=== PATIENT | male | born 1965 | race Hispanic/Latino ===

== ENCOUNTER 2017-06-22 18:00 | Emergency (ER) | payer MEDICAID, OTHER ==
[2017-06-22 18:00] VITALS: BMI 25.7
[2017-06-22 18:04] VITALS: BP 145/80; PULSE 75; RESP 16; TEMP 98.1; O2SAT 100
== END 2017-06-22 18:45 | disposition left against medical advice (07) ==
LOC: H.ER 18:00
DX: Z02.89 Encounter for other administrative examinations (principal)

== ENCOUNTER 2017-07-07 21:58 | Emergency (ER) | payer MEDICAID, OTHER ==
[2017-07-07 22:01] VITALS: BMI 25.1
[2017-07-07 22:03] VITALS: BP 130/74; PULSE 89; RESP 16; TEMP 97.5; O2SAT 96
--- NOTE | 2017-07-07 22:34 | ED PDOC ---
HPI: Wound Care - HPI Time Seen by Provider: 07/07/17 22:11 Chief Complaint (Nursing): Abnormal Skin Integrity Chief Complaint (Provider): Scalp Wound History Per: Patient Exam Limitations: no limitations Onset/Duration Of Symptoms: Days (x1 week) Current Symptoms Are (Timing): Still Present Quality Of Symptoms: Painful, Itching Severity: Mild Pain Scale Rating Of: 3 Additional Complaint(s): Patient is a 52 year old male who presents to ED for evaluation of scalp wound for the past 6-7 days. Per patient, he has a quarter sized lesion to the posterior scalp where he lost his hair. The area became irritated by his hat and had a small skin break which has been oozing clear fluid x 2 days. Patient seeking wound evaluation at this time. Patient has not taken any medication prior to arrival. Patient does admit to drinking 2 pints of alcohol today. Denies any pus drainage, headache, recent fever, visual changes, nausea, vomiting, chest pain, abdominal pain, or other rash. PMD: None Tetanus: UTD Past Medical History Reviewed: Historical Data, Nursing Documentation, Vital Signs Vital Signs: Last Vital Signs Temp 97.5 F L 07/07/17 22:01 Pulse 89 07/07/17 22:01 Resp 16 07/07/17 22:01 BP 130/74 07/07/17 22:01 Pulse Ox 96 07/07/17 22:01 - Medical History PMH: Back Problems - Surgical History Surgical History: Back Surgery (herniated disc), Hernia Repair - Family History Family History: States: CAD - Social History Current smoker - smoking cessation education provided: Yes (1ppd) Alcohol: > 2 Drinks/Day Drugs: Opiates (heroin) - Immunization History Hx Tetanus Toxoid Vaccination: Yes - Home Medications Home Medications: Ambulatory Orders Medication Instructions Recorded Cephalexin [Keflex] 500 mg PO TID #21 capsule 02/02/17 traMADol [Ultram] 50 mg PO TID PRN #15 tab 02/02/17 Fluticasone Nasal [Flonase] 1 actuation NS BID PRN #1 bottle 04/07/17 Pseudoephedrine HCl [Sudafed 120 mg PO Q12 PRN #10 tablet.er 04/07/17 12-Hour] Clotrimazole 1% Cream [Lotrimin 1%] 1 appl TOP BID #1 tube 07/07/17 - Allergies Allergies/Adverse Reactions: Allergies Allergy/AdvReac Type Severity Reaction Status Date / Time No Known Allergies Allergy Verified 07/07/17 22:01 Review of Systems ROS Statement: Except As Marked, All Systems Reviewed And Found Negative Skin: Positive for: Lesions (to scalp) Physical Exam - Reviewed Nursing Documentation Reviewed: Yes Vital Signs Reviewed: Yes - Physical Exam Appears: Positive for: Non-toxic (disheveled), No Acute Distress Head Exam: Positive for: ATRAUMATIC, NORMOCEPHALIC Skin: Positive for: Warm (quarter sized lesion with absence of hair to posterior scalp with erythematous wound margins (-) active bleeding (+) excoriations (-) pus drainage (-) surrounding erythema (-) evidence of cellulitis (-) warmth), Dry Eye Exam: Positive for: EOMI, PERRL Neck: Positive for: Painless ROM, Supple Cardiovascular/Chest: Positive for: Regular Rate, Rhythm Respiratory: Positive for: Normal Breath Sounds. Negative for: Decreased Breath Sounds, Accessory Muscle Use, Respiratory Distress Neurologic/Psych: Positive for: Alert, Oriented (x3), Gait (steady). Negative for: Aphasia, Facial Droop - ECG O2 Sat by Pulse Oximetry: 96 (RA) Pulse Ox Interpretation: Normal Medical Decision Making Medical Decision Making: Clinial impression: wound check, likely tinea capitis Patient does not have a medical condition that requires further intervention at this time in the ED. Patient is stable for discharge. Based on history, exam and diagnostic results plan will be for discharge. Advised to follow up with primary care physician / clinic in 1-2 days without fail. Advised to take medication as prescribed. Return to the emergency room at any time for any new or worsening symptoms. Patient states he fully agrees with and understands discharge instructions. States that he agrees with the plan and disposition. Verbalized and repeated discharge instructions and plan. I have given the patient opportunity to ask any additional questions. Disposition - Clinical Impression Clinical Impression: Tinea corporis, Scalp wound - Patient ED Disposition Is Patient to be Admitted: No Counseled Patient/Family Regarding: Studies Performed, Diagnosis, Need For Followup, Rx Given - Disposition Referrals: [facility] [place] [Outside] Disposition: Routine/Home Disposition Time: 22:40 Condition: STABLE Prescriptions: Clotrimazole 1% Cream [Lotrimin 1%] 1 appl TOP BID #1 tube Instructions: Tinea Capitis (DC), Ringworm Forms: [facility] (Japanese) Print Language: ARABIC - POA Present On Arrival: None
== END 2017-07-07 23:08 | disposition home or self-care (01) ==
LOC: H.ER 21:58
DX: B35.4 Tinea corporis (principal)

== ENCOUNTER 2017-07-09 15:29 | Emergency (ER) | payer MEDICAID, OTHER ==
[2017-07-09 15:29] VITALS: BMI 25.1
[2017-07-09 15:37] VITALS: BP 144/81; PULSE 108; RESP 16; TEMP 99.3; O2SAT 95
--- NOTE | 2017-07-09 17:22 | ED PDOC ---
HPI: Psych/Substance Abuse Time Seen by Provider: 07/09/17 15:42 Chief Complaint (Nursing): Substance Abuse Chief Complaint (Provider): Substance abuse History Per: Patient History/Exam Limitations: no limitations Additional Complaint(s): Pt brought by EMS for evaluation. Pt alert and cooperative in the ER. Asking for apple juice. Pt denies complaint. Pt admits to heroine use today. Past Medical History Reviewed: Historical Data, Nursing Documentation, Vital Signs Vital Signs: Last Vital Signs Temp 99.3 F 07/09/17 15:33 Pulse 108 H 07/09/17 15:33 Resp 16 07/09/17 15:33 BP 144/81 07/09/17 15:33 Pulse Ox 95 07/09/17 15:33 - Medical History PMH: Back Problems - Surgical History Surgical History: Back Surgery (herniated disc), Hernia Repair - Family History Family History: States: CAD - Living Arrangements Living Arrangements: With Family - Social History Current smoker - smoking cessation education provided: Yes Ex-Smoker (has not smoked in the last 12 months): No Alcohol: None Drugs: Opiates - Immunization History Hx Tetanus Toxoid Vaccination: Yes - Home Medications Home Medications: Ambulatory Orders Medication Instructions Recorded Cephalexin [Keflex] 500 mg PO TID #21 capsule 02/02/17 traMADol [Ultram] 50 mg PO TID PRN #15 tab 02/02/17 Fluticasone Nasal [Flonase] 1 actuation NS BID PRN #1 bottle 04/07/17 Pseudoephedrine HCl [Sudafed 120 mg PO Q12 PRN #10 tablet.er 04/07/17 12-Hour] Clotrimazole 1% Cream [Lotrimin 1%] 1 appl TOP BID #1 tube 07/07/17 - Allergies Allergies/Adverse Reactions: Allergies Allergy/AdvReac Type Severity Reaction Status Date / Time No Known Allergies Allergy Verified 07/07/17 22:01 Review of Systems ROS Statement: Except As Marked, All Systems Reviewed And Found Negative Constitutional: Negative for: Fever, Chills Cardiovascular: Negative for: Chest Pain Respiratory: Negative for: Shortness of Breath Gastrointestinal: Negative for: Vomiting Psych: Negative for: Psychosis, Suicidal ideation Physical Exam - Reviewed Nursing Documentation Reviewed: Yes Vital Signs Reviewed: Yes - Physical Exam Appears: Positive for: Well, Non-toxic, No Acute Distress Head Exam: Positive for: ATRAUMATIC, NORMAL INSPECTION, NORMOCEPHALIC Skin: Positive for: Normal Color, Warm, DRY Eye Exam: Positive for: Normal appearance, EOMI, PERRL ENT: Positive for: Normal ENT Inspection Neck: Positive for: Normal, Painless ROM Cardiovascular/Chest: Positive for: Regular Rate, Rhythm Respiratory: Positive for: Normal Breath Sounds. Negative for: Accessory Muscle Use, Respiratory Distress Gastrointestinal/Abdominal: Positive for: Normal Exam, Soft Back: Positive for: Normal Inspection Extremity: Positive for: Normal ROM Neurologic/Psych: Positive for: Alert, Oriented - ECG O2 Sat by Pulse Oximetry: 95 Medical Decision Making Medical Decision Making: Pt at baseline. Drank juice in ER. Asking to leave. Alert and oriented with steady gait. Disposition - Clinical Impression Clinical Impression: Opiate abuse, continuous - Patient ED Disposition Is Patient to be Admitted: No - Disposition Disposition: Routine/Home Disposition Time: 17:24 Condition: GOOD Instructions: Opioid Use Disorder Forms: [employer] (Icelandic)
== END 2017-07-09 18:35 | disposition home or self-care (01) ==
LOC: H.ER 15:29
DX: F11.10 Opioid abuse, uncomplicated (principal); F17.200 Nicotine dependence, unspecified, uncomplicated

== ENCOUNTER 2017-07-14 23:36 | Emergency (ER) | payer OTHER ==
[2017-07-14 23:36] VITALS: BMI 25.1
[2017-07-14 23:45] VITALS: BP 130/78; PULSE 98; RESP 20; TEMP 97.8; O2SAT 97
--- NOTE | 2017-07-15 00:08 | ED PDOC ---
HPI: Psych/Substance Abuse Time Seen by Provider: 07/14/17 23:49 Chief Complaint (Nursing): Substance Abuse Chief Complaint (Provider): substance abuse History Per: Patient, EMS Additional Complaint(s): 52 y/o male brought in by EMS for evaluation of substance abuse. Patient admits to using heroin tonight. Denies acute medical or psychiatric complaints. Requesting juice. Past Medical History Reviewed: Historical Data, Nursing Documentation, Vital Signs Vital Signs: Last Vital Signs Temp 97.8 F 07/14/17 23:42 Pulse 98 H 07/14/17 23:42 Resp 20 07/14/17 23:42 BP 130/78 07/14/17 23:42 Pulse Ox 97 07/14/17 23:42 - Medical History PMH: Back Problems - Surgical History Surgical History: Back Surgery (herniated disc), Hernia Repair - Family History Family History: States: CAD - Immunization History Hx Tetanus Toxoid Vaccination: Yes - Home Medications Home Medications: Ambulatory Orders Medication Instructions Recorded Cephalexin [Keflex] 500 mg PO TID #21 capsule 02/02/17 traMADol [Ultram] 50 mg PO TID PRN #15 tab 02/02/17 Fluticasone Nasal [Flonase] 1 actuation NS BID PRN #1 bottle 04/07/17 Pseudoephedrine HCl [Sudafed 120 mg PO Q12 PRN #10 tablet.er 04/07/17 12-Hour] Clotrimazole 1% Cream [Lotrimin 1%] 1 appl TOP BID #1 tube 07/07/17 - Allergies Allergies/Adverse Reactions: Allergies Allergy/AdvReac Type Severity Reaction Status Date / Time No Known Allergies Allergy Verified 07/07/17 22:01 Review of Systems ROS Statement: Except As Marked, All Systems Reviewed And Found Negative Physical Exam - Reviewed Nursing Documentation Reviewed: Yes Vital Signs Reviewed: Yes - Physical Exam Appears: Positive for: Well, Non-toxic, Uncomfortable (agitated, dancing) Head Exam: Positive for: ATRAUMATIC, NORMAL INSPECTION, NORMOCEPHALIC Skin: Positive for: Normal Color Eye Exam: Positive for: Normal appearance ENT: Positive for: Normal ENT Inspection Cardiovascular/Chest: Positive for: Regular Rate, Rhythm Respiratory: Positive for: Normal Breath Sounds Gastrointestinal/Abdominal: Positive for: Normal Exam Back: Positive for: Normal Inspection Extremity: Positive for: Normal ROM Neurologic/Psych: Positive for: Alert, Oriented - ECG O2 Sat by Pulse Oximetry: 97 - Progress ED Course And Treament: accucheck juice given Patient AAOx3. Ambulating steady gait. Stable for discharge Disposition - Clinical Impression Clinical Impression: Opiate abuse, continuous - Patient ED Disposition Is Patient to be Admitted: No Counseled Patient/Family Regarding: Studies Performed, Diagnosis, Need For Followup - Disposition Disposition: Routine/Home Disposition Time: 01:02 Condition: STABLE Instructions: Drug Abuse and Drug Addiction (DC)
== END 2017-07-15 00:40 | disposition home or self-care (01) ==
LOC: H.ER 23:36
DX: F11.10 Opioid abuse, uncomplicated (principal)

== ENCOUNTER 2017-07-17 19:25 | Emergency (ER) | payer OTHER ==
[2017-07-17 19:25] VITALS: BMI 25.1
[2017-07-17 19:36] VITALS: BP 121/73; PULSE 88; RESP 20; TEMP 98.1; O2SAT 98
--- NOTE | 2017-07-17 21:45 | ED PDOC ---
HPI: Psych/Substance Abuse Time Seen by Provider: 07/17/17 19:37 Chief Complaint (Nursing): Substance Abuse History Per: Patient, EMS Additional Complaint(s): Pt. brought in by EMS for bizarre behavior. Pt. admits to taking heroin. Offers no complaints. Past Medical History Reviewed: Historical Data, Nursing Documentation, Vital Signs Vital Signs: Last Vital Signs Temp 98.1 F 07/17/17 19:33 Pulse 88 07/17/17 19:33 Resp 20 07/17/17 19:33 BP 121/73 07/17/17 19:33 Pulse Ox 98 07/17/17 19:33 - Medical History PMH: Back Problems - Surgical History Surgical History: Back Surgery (herniated disc), Hernia Repair - Family History Family History: States: CAD - Immunization History Hx Tetanus Toxoid Vaccination: Yes - Home Medications Home Medications: Ambulatory Orders Medication Instructions Recorded Cephalexin [Keflex] 500 mg PO TID #21 capsule 02/02/17 traMADol [Ultram] 50 mg PO TID PRN #15 tab 02/02/17 Fluticasone Nasal [Flonase] 1 actuation NS BID PRN #1 bottle 04/07/17 Pseudoephedrine HCl [Sudafed 120 mg PO Q12 PRN #10 tablet.er 04/07/17 12-Hour] Clotrimazole 1% Cream [Lotrimin 1%] 1 appl TOP BID #1 tube 07/07/17 - Allergies Allergies/Adverse Reactions: Allergies Allergy/AdvReac Type Severity Reaction Status Date / Time No Known Allergies Allergy Verified 07/17/17 19:33 Review of Systems ROS Statement: Except As Marked, All Systems Reviewed And Found Negative Physical Exam - Physical Exam Appears: Positive for: Well, Non-toxic, No Acute Distress Head Exam: Positive for: ATRAUMATIC, NORMAL INSPECTION, NORMOCEPHALIC Skin: Positive for: Normal Color, Warm. Negative for: Rash Eye Exam: Positive for: Normal appearance, EOMI, PERRL ENT: Positive for: Normal ENT Inspection Cardiovascular/Chest: Positive for: Regular Rate, Rhythm Respiratory: Positive for: Normal Breath Sounds. Negative for: Respiratory Distress Gastrointestinal/Abdominal: Positive for: Normal Exam, Soft. Negative for: Tenderness Back: Positive for: Normal Inspection Extremity: Positive for: Normal ROM Neurologic/Psych: Positive for: Alert, Oriented, Mood/Affect (calm, cooperative) , Gait (steady unassisted). Negative for: Aphasia, Facial Droop - ECG O2 Sat by Pulse Oximetry: 98 Disposition - Clinical Impression Clinical Impression: Substance abuse - Patient ED Disposition Is Patient to be Admitted: No - Disposition Disposition: Routine/Home Disposition Time: 21:00 Condition: STABLE
== END 2017-07-17 21:00 | disposition home or self-care (01) ==
LOC: H.ER 19:25
DX: F19.10 Other psychoactive substance abuse, uncomplicated (principal)

== ENCOUNTER 2017-07-19 18:02 | Emergency (ER) | payer OTHER ==
[2017-07-19 18:02] VITALS: BMI 25.1
[2017-07-19 18:10] VITALS: BP 126/70; PULSE 103; RESP 18; TEMP 98.2; O2SAT 95
--- NOTE | 2017-07-19 19:32 | ED PDOC ---
HPI: Psych/Substance Abuse Time Seen by Provider: 07/19/17 18:09 Chief Complaint (Nursing): Substance Abuse Chief Complaint (Provider): Heroin Abuse History Per: Patient History/Exam Limitations: no limitations Onset/Duration Of Symptoms: Mins Current Symptoms Are (Timing): Still Present Additional Complaint(s): 48 yo male with history of heroin abuse presents after doing heroin. Pt alert and oriented. Brought in by police. Past Medical History Reviewed: Historical Data, Nursing Documentation, Vital Signs Vital Signs: Last Vital Signs Temp 98.2 F 07/19/17 18:07 Pulse 103 H 07/19/17 18:07 Resp 18 07/19/17 18:07 BP 126/70 07/19/17 18:07 Pulse Ox 95 07/19/17 18:07 - Medical History PMH: Back Problems - Surgical History Surgical History: Back Surgery (herniated disc), Hernia Repair - Family History Family History: States: CAD - Social History Current smoker - smoking cessation education provided: No Alcohol: None Drugs: Opiates - Immunization History Hx Tetanus Toxoid Vaccination: Yes - Home Medications Home Medications: Ambulatory Orders Medication Instructions Recorded Cephalexin [Keflex] 500 mg PO TID #21 capsule 02/02/17 traMADol [Ultram] 50 mg PO TID PRN #15 tab 02/02/17 Fluticasone Nasal [Flonase] 1 actuation NS BID PRN #1 bottle 04/07/17 Pseudoephedrine HCl [Sudafed 120 mg PO Q12 PRN #10 tablet.er 04/07/17 12-Hour] Clotrimazole 1% Cream [Lotrimin 1%] 1 appl TOP BID #1 tube 07/07/17 - Allergies Allergies/Adverse Reactions: Allergies Allergy/AdvReac Type Severity Reaction Status Date / Time No Known Allergies Allergy Verified 07/19/17 18:07 Review of Systems ROS Statement: Except As Marked, All Systems Reviewed And Found Negative Constitutional: Negative for: Fever, Chills Psych: Negative for: Psychosis, Suicidal ideation, Withdrawal Physical Exam - Reviewed Nursing Documentation Reviewed: Yes Vital Signs Reviewed: Yes - Physical Exam Appears: Positive for: Well, Non-toxic, No Acute Distress Head Exam: Positive for: ATRAUMATIC, NORMAL INSPECTION, NORMOCEPHALIC Skin: Positive for: Normal Color, Warm, DRY Eye Exam: Positive for: Normal appearance ENT: Positive for: Normal ENT Inspection Neck: Positive for: Normal, Painless ROM Cardiovascular/Chest: Positive for: Regular Rate, Rhythm Respiratory: Positive for: CNT, Normal Breath Sounds Back: Positive for: Normal Inspection Extremity: Positive for: Normal ROM Neurologic/Psych: Positive for: Alert, Oriented. Negative for: Mood/Affect ( Manic ) - ECG O2 Sat by Pulse Oximetry: 95 Medical Decision Making Medical Decision Making: Pt observed in ER for 2 hours. PT ate a sandwich and drank juice in ER. Pt with steady gait. Disposition - Clinical Impression Clinical Impression: Heroin abuse - Patient ED Disposition Is Patient to be Admitted: No Counseled Patient/Family Regarding: Diagnosis, Need For Followup - Disposition Disposition: Routine/Home Disposition Time: 19:32 Condition: GOOD Instructions: Drug Abuse and Drug Addiction (DC)
== END 2017-07-19 20:46 | disposition home or self-care (01) ==
LOC: H.ER 18:02
DX: F11.10 Opioid abuse, uncomplicated (principal)

== ENCOUNTER 2017-07-26 13:57 | Emergency (ER) | payer OTHER ==
--- NOTE | 2017-07-26 14:43 | ED PDOC ---
HPI: Psych/Substance Abuse Chief Complaint (Provider): Agitation ED Caveat: Acuity of Condition Additional Complaint(s): Pt BIBA after appearing intoxicated in public. <Neris Byers - Last Filed: 07/26/17 14:41> <Luis Coates - Last Filed: 07/26/17 19:36> Time Seen by Provider: 07/26/17 14:00 Chief Complaint (Nursing): Psychiatric Evaluation Past Medical History Reviewed: Nursing Documentation, Vital Signs - Medical History PMH: Back Problems - Surgical History Surgical History: Back Surgery (herniated disc), Hernia Repair - Family History Family History: States: CAD - Immunization History Hx Tetanus Toxoid Vaccination: Yes <Neris Byers - Last Filed: 07/26/17 14:41> Vital Signs: Last Vital Signs Temp 97.8 F 07/26/17 17:45 Pulse 73 07/26/17 17:45 Resp 20 07/26/17 17:45 BP 138/82 07/26/17 17:45 Pulse Ox 97 07/26/17 17:45 <Luis Coates - Last Filed: 07/26/17 19:36> - Home Medications Home Medications: Ambulatory Orders Medication Instructions Recorded Cephalexin [Keflex] 500 mg PO TID #21 capsule 02/02/17 traMADol [Ultram] 50 mg PO TID PRN #15 tab 02/02/17 Fluticasone Nasal [Flonase] 1 actuation NS BID PRN #1 bottle 04/07/17 Pseudoephedrine HCl [Sudafed 120 mg PO Q12 PRN #10 tablet.er 04/07/17 12-Hour] Clotrimazole 1% Cream [Lotrimin 1%] 1 appl TOP BID #1 tube 07/07/17 - Allergies Allergies/Adverse Reactions: Allergies Allergy/AdvReac Type Severity Reaction Status Date / Time No Known Allergies Allergy Verified 07/19/17 18:07 Review of Systems Review Of Systems: ROS cannot be obtained secondary to pt's inabilty to answer questions. <Neris Byers - Last Filed: 07/26/17 14:41> Physical Exam - Reviewed Nursing Documentation Reviewed: Yes Vital Signs Reviewed: Yes - Physical Exam Appears: Positive for: Non-toxic Head Exam: Positive for: ATRAUMATIC, NORMAL INSPECTION Skin: Positive for: Normal Color, Warm, Dry Eye Exam: Positive for: Normal appearance, EOMI, PERRL Cardiovascular/Chest: Positive for: Regular Rate, Rhythm Respiratory: Positive for: Normal Breath Sounds Neurologic/Psych: Positive for: Alert, pe manager II-XII (Grossly normal), Other ( Agitated, yelling, not following direction, ambulated to ED without assistance) <Neris Byers - Last Filed: 07/26/17 14:41> Disposition <Neris Byers - Last Filed: 07/26/17 14:41> <Luis Coates - Last Filed: 07/26/17 19:36> - Disposition Forms: [employer] (Occitan)
[2017-07-26 17:45] VITALS: O2SAT 97
--- NOTE | 2017-07-26 20:00 | ED PDOC ---
- ECG O2 Sat by Pulse Oximetry: 97 (RA) Pulse Ox Interpretation: Normal Medical Decision Making Medical Decision Making: Time: 19:00 Patient was signed out to me by Dr. Byers Pending Clinical Sobriety, reevaluation, and disposition. Upon reevaluation, patient was alert, oriented x3 and walking with a steady gait. Upon provider assessment, patient's condition has improved and he is stable for discharge. Scribe Attestation: Documented by Andreea Lundy, acting as a scribe for Luis Coates MD. Provider Scribe Attestation: All medical record entries made by the Scribe were at my direction and personally dictated by me. I have reviewed the chart and agree that the record accurately reflects my personal performance of the history, physical exam, medical decision making, and the department course for this patient. I have also personally directed, reviewed, and agree with the discharge instructions and disposition. Disposition - Clinical Impression Clinical Impression: Polysubstance abuse - POA Present On Arrival: None - Disposition Disposition: Routine/Home Disposition Time: 20:45 Condition: IMPROVED Instructions: Polysubstance Abuse Forms: [employer] (Sao Tomean)
[2017-07-26 20:47] VITALS: BP 122/76; PULSE 80; RESP 18; TEMP 98.6
== END 2017-07-26 20:46 | disposition home or self-care (01) ==
LOC: H.ER 13:57
DX: F19.10 Other psychoactive substance abuse, uncomplicated (principal)
CPT/HCPCS: 80320; 96372; 99284; J1630; J2060

== ENCOUNTER 2017-07-26 22:20 | Emergency (ER) | payer OTHER ==
[2017-07-26 22:25] VITALS: PULSE 84; RESP 16; TEMP 99.2; O2SAT 95
--- NOTE | 2017-07-26 22:36 | ED PDOC ---
HPI: Psych/Substance Abuse Time Seen by Provider: 07/26/17 22:32 Chief Complaint (Nursing): Substance Abuse Chief Complaint (Provider): substance abuse History Per: EMS History/Exam Limitations: intoxication Additional Complaint(s): presents to ER for drug intoxication and bizarre behavior. pt with no complaints. admits to drug use. Past Medical History Reviewed: Historical Data, Nursing Documentation, Vital Signs Vital Signs: Last Vital Signs Temp 99.2 F 07/26/17 22:23 Pulse 84 07/26/17 22:23 Resp 16 07/26/17 22:23 BP Pulse Ox 95 07/26/17 22:23 - Medical History PMH: Back Problems - Surgical History Surgical History: Back Surgery (herniated disc), Hernia Repair - Family History Family History: States: CAD - Immunization History Hx Tetanus Toxoid Vaccination: Yes - Home Medications Home Medications: Ambulatory Orders Medication Instructions Recorded Cephalexin [Keflex] 500 mg PO TID #21 capsule 02/02/17 traMADol [Ultram] 50 mg PO TID PRN #15 tab 02/02/17 Fluticasone Nasal [Flonase] 1 actuation NS BID PRN #1 bottle 04/07/17 Pseudoephedrine HCl [Sudafed 120 mg PO Q12 PRN #10 tablet.er 04/07/17 12-Hour] Clotrimazole 1% Cream [Lotrimin 1%] 1 appl TOP BID #1 tube 07/07/17 - Allergies Allergies/Adverse Reactions: Allergies Allergy/AdvReac Type Severity Reaction Status Date / Time No Known Allergies Allergy Verified 07/19/17 18:07 Review of Systems Review Of Systems: ROS cannot be obtained secondary to pt's inabilty to answer questions. Physical Exam - Reviewed Nursing Documentation Reviewed: Yes Vital Signs Reviewed: Yes - Physical Exam Appears: Positive for: In Acute Distress (dissheveled disoriented, intoxicated in state similar to previous visits) Head Exam: Positive for: ATRAUMATIC, NORMOCEPHALIC Skin: Positive for: Warm, Dry Eye Exam: Positive for: EOMI, PERRL Neck: Positive for: Painless ROM, Supple Cardiovascular/Chest: Positive for: Regular Rate, Rhythm. Negative for: Murmur Respiratory: Negative for: Rhonchi, Respiratory Distress Gastrointestinal/Abdominal: Negative for: Distended Back: Positive for: Normal Inspection. Negative for: Decreased ROM Extremity: Positive for: Normal ROM. Negative for: Deformity Neurologic/Psych: Positive for: Alert, Mood/Affect (elated mood and affect) - ECG O2 Sat by Pulse Oximetry: 95 Disposition - Clinical Impression Clinical Impression: Opiate abuse, continuous - Disposition Disposition: Routine/Home Disposition Time: 23:00 Condition: IMPROVED Instructions: Drug Abuse and Drug Addiction (DC), Opioid Use Disorder Forms: [employer] (Luxembourgish)
== END 2017-07-26 23:46 | disposition home or self-care (01) ==
LOC: H.ER 22:20
DX: F11.10 Opioid abuse, uncomplicated (principal)

== ENCOUNTER 2017-07-27 15:14 | Emergency (ER) | payer OTHER ==
[2017-07-27 15:21] VITALS: TEMP 97
--- NOTE | 2017-07-27 17:56 | ED PDOC ---
HPI: Psych/Substance Abuse Time Seen by Provider: 07/27/17 15:21 Chief Complaint (Nursing): Substance Abuse Chief Complaint (Provider): Heroin abuse Past Medical History Reviewed: Historical Data, Nursing Documentation, Vital Signs Vital Signs: Last Vital Signs Temp 97 F L 07/27/17 15:19 Pulse 99 H 07/27/17 15:19 Resp 20 07/27/17 15:19 BP Pulse Ox 98 07/27/17 15:19 - Medical History PMH: Back Problems - Surgical History Surgical History: Back Surgery (herniated disc), Hernia Repair - Family History Family History: States: CAD - Immunization History Hx Tetanus Toxoid Vaccination: Yes - Home Medications Home Medications: Ambulatory Orders Medication Instructions Recorded Cephalexin [Keflex] 500 mg PO TID #21 capsule 02/02/17 traMADol [Ultram] 50 mg PO TID PRN #15 tab 02/02/17 Fluticasone Nasal [Flonase] 1 actuation NS BID PRN #1 bottle 04/07/17 Pseudoephedrine HCl [Sudafed 120 mg PO Q12 PRN #10 tablet.er 04/07/17 12-Hour] Clotrimazole 1% Cream [Lotrimin 1%] 1 appl TOP BID #1 tube 07/07/17 - Allergies Allergies/Adverse Reactions: Allergies Allergy/AdvReac Type Severity Reaction Status Date / Time No Known Allergies Allergy Verified 07/27/17 15:19 - ECG O2 Sat by Pulse Oximetry: 98 Medical Decision Making Medical Decision Makin - Pt alert and oriented with clear speech and steady gait. PT ate a sandwich and slept comfortable in ER. Disposition - Clinical Impression Clinical Impression: Opiate abuse, continuous - Patient ED Disposition Is Patient to be Admitted: No - Disposition Disposition: Routine/Home Disposition Time: 17:42 Condition: STABLE Forms: [employer] (Niuean)
[2017-07-27 18:17] VITALS: BP 132/70; PULSE 85; RESP 21
[2017-07-27 18:36] VITALS: O2SAT 98
== END 2017-07-27 19:14 | disposition home or self-care (01) ==
LOC: H.ER 15:14
DX: F11.10 Opioid abuse, uncomplicated (principal)

== ENCOUNTER 2017-12-30 17:24 | Emergency (ER) | payer SELFPAY ==
[2017-12-30 17:46] VITALS: BP 139/88; PULSE 94; RESP 17; TEMP 98.3; O2SAT 97
--- NOTE | 2017-12-30 17:56 | ED PDOC ---
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 Patient admits to heroin abuse today. Offers no complaints at this time. PMD: none provided Past Medical History Reviewed: Historical Data, Nursing Documentation, Vital Signs Vital Signs: Last Vital Signs Temp 98.3 F 12/30/17 17:43 Pulse 94 H 12/30/17 17:43 Resp 17 12/30/17 17:43 BP 139/88 12/30/17 17:43 Pulse Ox 97 12/30/17 17:43 - Medical History PMH: Back Problems Denies: Chronic Kidney Disease - Surgical History Surgical History: Back Surgery (herniated disc), Hernia Repair - Family History Family History: States: CAD - Living Arrangements Living Arrangements: Other (homeless) - Social History Drugs: Other (heroin) - Home Medications Home Medications: Ambulatory Orders Medication Instructions Recorded Cephalexin [Keflex] 500 mg PO TID #21 capsule 02/02/17 RX: traMADol [Ultram] 50 mg PO TID PRN #15 tab 02/02/17 Fluticasone Nasal [Flonase] 1 actuation NS BID PRN #1 bottle 04/07/17 Pseudoephedrine HCl [Sudafed 120 mg PO Q12 PRN #10 tablet.er 04/07/17 12-Hour] RX: Clotrimazole 1% Cream 1 appl TOP BID #1 tube 07/07/17 [Lotrimin 1%] Ibuprofen [Motrin] 600 mg PO QID PRN #30 tab 09/26/17 Sulfamethoxazole/Trimethoprim 1 tab PO BID #14 tab 09/26/17 [Bactrim DS 800 mg-160 mg] Ibuprofen [Motrin Tab] 800 mg PO TID PRN #12 tab 12/05/17 Sulfamethoxazole/Trimethoprim 1 tab PO BID #14 tab 12/05/17 [Bactrim DS 800 mg-160 mg] - Allergies Allergies/Adverse Reactions: Allergies Allergy/AdvReac Type Severity Reaction Status Date / Time No Known Allergies Allergy Verified 12/15/17 18:43 Review of Systems Review Of Systems: ROS cannot be obtained secondary to pt's inabilty to answer questions. Physical Exam - Reviewed Nursing Documentation Reviewed: Yes Vital Signs Reviewed: Yes - Physical Exam Appears: Positive for: No Acute Distress (erratic behavior, but does cooperate) Head Exam: Positive for: ATRAUMATIC Skin: Positive for: Normal Color, Warm. Negative for: Rash Eye Exam: Positive for: Normal appearance Respiratory: Positive for: Normal Breath Sounds. Negative for: Accessory Muscle Use, Respiratory Distress Gastrointestinal/Abdominal: Positive for: Normal Exam, Soft. Negative for: Tenderness Neurologic/Psych: Positive for: Alert, Oriented, Gait (steady and unassisted). Negative for: Aphasia, Facial Droop - ECG O2 Sat by Pulse Oximetry: 97 (RA) Pulse Ox Interpretation: Normal Medical Decision Making Medical Decision Making: Time: 1757 Initial Impression: substance abuse, erratic behavior Initial Plan: --Patient with erratic behavior, but cooperative at this time. Will monitor and reassess patient. 1819 Patient is in no acute distress, gait steady and unassisted, calm and cooperative. Stable for d/c. -- Scribe Attestation: Documented by Alice Clements, acting as a scribe for Kirk Olmedo PA-C. Provider Scribe Attestation: All medical record entries made by the Scribe were at my direction and personally dictated by me. I have reviewed the chart and agree that the record accurately reflects my personal performance of the history, physical exam, medical decision making, and the department course for this patient. I have also personally directed, reviewed, and agree with the discharge instructions and disposition. Disposition - Clinical Impression Clinical Impression: Opiate abuse, continuous - Patient ED Disposition Is Patient to be Admitted: No - Disposition Disposition: Routine/Home Disposition Time: 18:20 Condition: STABLE Forms: [employer] (Divehi)
== END 2017-12-30 18:32 | disposition home or self-care (01) ==
LOC: H.ER 17:24
DX: F11.20 Opioid dependence, uncomplicated (principal)

== ENCOUNTER 2017-12-31 16:46 | Emergency (ER) | payer SELFPAY ==
--- NOTE | 2017-12-31 17:18 | ED PDOC ---
HPI: Psych/Substance Abuse Time Seen by Provider: 12/31/17 16:55 Chief Complaint (Provider): psychiatric evaluation ED Caveat: Uncooperative History Per: Patient Modifying Factor(s): Other (heroin) Severity: Moderate Associated Symptoms: Agitation Involuntary Hold By: Local Law Enforcement Additional History Per: Law Enforcement Additional Complaint(s): 52 year old male, well know to the ED, is brought into the ED by police for noise. Police state that they were called by concerned onlookers when the patient appeared to be agitated and incoherent in public. Patient admits to heroin use. Patient denies having any complaints. Patient is agitated in the ED. PMD: unable to obtain Past Medical History Reviewed: Unable To Obtain - Medical History PMH: Back Problems Denies: Chronic Kidney Disease - Surgical History Surgical History: Back Surgery (herniated disc), Hernia Repair - Family History Family History: States: CAD - Home Medications Home Medications: Ambulatory Orders Medication Instructions Recorded Cephalexin [Keflex] 500 mg PO TID #21 capsule 02/02/17 traMADol [Ultram] 50 mg PO TID PRN #15 tab 02/02/17 Fluticasone Nasal [Flonase] 1 actuation NS BID PRN #1 bottle 04/07/17 Pseudoephedrine HCl [Sudafed 120 mg PO Q12 PRN #10 tablet.er 04/07/17 12-Hour] Clotrimazole 1% Cream [Lotrimin 1%] 1 appl TOP BID #1 tube 07/07/17 Ibuprofen [Motrin] 600 mg PO QID PRN #30 tab 09/26/17 Sulfamethoxazole/Trimethoprim 1 tab PO BID #14 tab 09/26/17 [Bactrim DS 800 mg-160 mg] Ibuprofen [Motrin Tab] 800 mg PO TID PRN #12 tab 12/05/17 Sulfamethoxazole/Trimethoprim 1 tab PO BID #14 tab 12/05/17 [Bactrim DS 800 mg-160 mg] - Allergies Allergies/Adverse Reactions: Allergies Allergy/AdvReac Type Severity Reaction Status Date / Time No Known Allergies Allergy Verified 12/15/17 18:43 Medical Decision Making Medical Decision Makin:55 Initial impression: 52 year old male in the ED for a psychiatric evaluation Initial plan: * ativan 2 mg IM once * reevaluation Scribe Attestation: Documented by Heaven Urias, acting as a scribe for Mariam Gonzalez PA-C. Provider Scribe Attestation: All medical record entries made by the Scribe were at my direction and personally dictated by me. I have reviewed the chart and agree that the record accurately reflects my personal performance of the history, physical exam, medical decision making, and the department course for this patient. I have also personally directed, reviewed, and agree with the discharge instructions and disposition. Disposition - Clinical Impression Clinical Impression: Substance abuse - Patient ED Disposition Is Patient to be Admitted: No - Disposition Disposition: Routine/Home Disposition Time: 22:40 Condition: FAIR Instructions: Drug Abuse and Drug Addiction (DC)
[2017-12-31 17:21] VITALS: BP 141/83; PULSE 93; RESP 18; TEMP 98.5; O2SAT 97
== END 2017-12-31 23:10 | disposition home or self-care (01) ==
LOC: H.ER 16:46
DX: F11.10 Opioid abuse, uncomplicated (principal)
CPT/HCPCS: 96372; 99283; J2060

== ENCOUNTER 2018-01-06 16:40 | Emergency (ER) | payer SELFPAY ==
[2018-01-06 16:52] VITALS: TEMP 98.7
--- NOTE | 2018-01-06 16:59 | ED PDOC ---
HPI: Psych/Substance Abuse Time Seen by Provider: 01/06/18 16:55 Chief Complaint (Nursing): Substance Abuse Chief Complaint (Provider): clearance History Per: Patient Additional Complaint(s): 52 y/o male presents in police custody for medical and psychiatric clearance. Patient is currently under arrest. He offers no acute complaints. Past Medical History Reviewed: Historical Data, Nursing Documentation, Vital Signs Vital Signs: Last Vital Signs Temp 98.7 F 01/06/18 16:50 Pulse 118 H 01/06/18 16:50 Resp 16 01/06/18 16:50 BP 135/67 01/06/18 16:50 Pulse Ox 95 01/06/18 16:50 - Medical History PMH: Back Problems - Surgical History Surgical History: Back Surgery (herniated disc), Hernia Repair - Family History Family History: States: CAD - Living Arrangements Living Arrangements: With Family - Social History Current smoker - smoking cessation education provided: Yes Alcohol: None - Home Medications Home Medications: Ambulatory Orders Medication Instructions Recorded Cephalexin [Keflex] 500 mg PO TID #21 capsule 02/02/17 traMADol [Ultram] 50 mg PO TID PRN #15 tab 02/02/17 Fluticasone Nasal [Flonase] 1 actuation NS BID PRN #1 bottle 04/07/17 Pseudoephedrine HCl [Sudafed 120 mg PO Q12 PRN #10 tablet.er 04/07/17 12-Hour] Clotrimazole 1% Cream [Lotrimin 1%] 1 appl TOP BID #1 tube 07/07/17 Ibuprofen [Motrin] 600 mg PO QID PRN #30 tab 09/26/17 Sulfamethoxazole/Trimethoprim 1 tab PO BID #14 tab 09/26/17 [Bactrim DS 800 mg-160 mg] Ibuprofen [Motrin Tab] 800 mg PO TID PRN #12 tab 12/05/17 Sulfamethoxazole/Trimethoprim 1 tab PO BID #14 tab 12/05/17 [Bactrim DS 800 mg-160 mg] - Allergies Allergies/Adverse Reactions: Allergies Allergy/AdvReac Type Severity Reaction Status Date / Time No Known Allergies Allergy Verified 01/06/18 16:48 Review of Systems ROS Statement: Except As Marked, All Systems Reviewed And Found Negative Constitutional: Negative for: Fever Cardiovascular: Negative for: Chest Pain Respiratory: Negative for: Cough Gastrointestinal: Negative for: Nausea, Vomiting Genitourinary Male: Negative for: Dysuria Psych: Negative for: Suicidal ideation Physical Exam - Reviewed Nursing Documentation Reviewed: Yes Vital Signs Reviewed: Yes - Physical Exam Appears: Positive for: Well, Non-toxic, No Acute Distress Skin: Positive for: Normal Color. Negative for: Rash Eye Exam: Positive for: Normal appearance Cardiovascular/Chest: Positive for: Regular Rate, Rhythm Respiratory: Positive for: Normal Breath Sounds. Negative for: Respiratory Distress Extremity: Positive for: Normal ROM Neurologic/Psych: Positive for: Alert, Oriented, Gait (steady) - ECG O2 Sat by Pulse Oximetry: 95 Pulse Ox Interpretation: Normal Medical Decision Making Medical Decision Makin52 year old here for medical and psychiatric clearance. Plan: Crisis eval As per crisis counselor and psychiatrist control clerk food and beverage, Dr. Carrillo, patient does not meet criteria for admission and is stable for discharge. Patient is medically and psychiatrically stable for incarceration. Disposition - Clinical Impression Clinical Impression: Adjustment disorder - Patient ED Disposition Is Patient to be Admitted: No - Disposition Referrals: [facility] [Outside] Disposition: Routine/Home Disposition Time: 18:26 Condition: STABLE Additional Instructions: Patient is medically and psychiatrically cleared for incarceration. Instructions: Adjustment Disorder Forms: [employer] (Bulgarian)
[2018-01-06 18:33] VITALS: BP 130/70; PULSE 92; RESP 20
[2018-01-06 18:36] VITALS: O2SAT 95
== END 2018-01-06 18:30 | disposition home or self-care (01) ==
LOC: H.ER 16:40
DX: F43.20 Adjustment disorder, unspecified (principal); F17.200 Nicotine dependence, unspecified, uncomplicated

== ENCOUNTER 2018-01-09 14:49 | Emergency (ER) | payer SELFPAY ==
[2018-01-09 15:01] VITALS: O2SAT 99
--- NOTE | 2018-01-09 15:57 | ED PDOC ---
HPI: General Adult Time Seen by Provider: 01/09/18 15:07 Chief Complaint (Nursing): Alcohol Ingestion Chief Complaint (Provider): sustance abuse History Per: Patient Additional Complaint(s): 52-year-old male arrives via ambulance for evaluation of possible alcohol intoxication. Patient admits to drinking today. He is noted to have fever of 102 and states he has had a cough past week. PMD: none Past Medical History Reviewed: Historical Data, Nursing Documentation, Vital Signs Vital Signs: Last Vital Signs Temp 101 F H 01/09/18 15:09 Pulse 102 H 01/09/18 14:56 Resp 18 01/09/18 14:56 BP Pulse Ox 99 01/09/18 14:56 - Medical History PMH: Back Problems - Surgical History Surgical History: Back Surgery (herniated disc), Hernia Repair - Family History Family History: States: CAD - Living Arrangements Living Arrangements: With Family - Social History Current smoker - smoking cessation education provided: Yes Alcohol: Social Drugs: Opiates - Home Medications Home Medications: Ambulatory Orders Medication Instructions Recorded Cephalexin [Keflex] 500 mg PO TID #21 capsule 02/02/17 traMADol [Ultram] 50 mg PO TID PRN #15 tab 02/02/17 Fluticasone Nasal [Flonase] 1 actuation NS BID PRN #1 bottle 04/07/17 Pseudoephedrine HCl [Sudafed 120 mg PO Q12 PRN #10 tablet.er 04/07/17 12-Hour] Clotrimazole 1% Cream [Lotrimin 1%] 1 appl TOP BID #1 tube 07/07/17 Ibuprofen [Motrin] 600 mg PO QID PRN #30 tab 09/26/17 Sulfamethoxazole/Trimethoprim 1 tab PO BID #14 tab 09/26/17 [Bactrim DS 800 mg-160 mg] Ibuprofen [Motrin Tab] 800 mg PO TID PRN #12 tab 12/05/17 Sulfamethoxazole/Trimethoprim 1 tab PO BID #14 tab 12/05/17 [Bactrim DS 800 mg-160 mg] Azithromycin [Zithromax] 250 mg PO DAILY #6 tab 01/09/18 Benzonatate 200 mg PO TID PRN #20 capsule 01/09/18 - Allergies Allergies/Adverse Reactions: Allergies Allergy/AdvReac Type Severity Reaction Status Date / Time No Known Allergies Allergy Verified 01/06/18 16:48 Review of Systems ROS Statement: Except As Marked, All Systems Reviewed And Found Negative Constitutional: Positive for: Fever Cardiovascular: Negative for: Chest Pain Respiratory: Positive for: Cough. Negative for: Shortness of Breath Physical Exam - Reviewed Nursing Documentation Reviewed: Yes Vital Signs Reviewed: Yes - Physical Exam Appears: Positive for: Well, Non-toxic, No Acute Distress Skin: Positive for: Normal Color. Negative for: Rash Eye Exam: Positive for: Normal appearance Cardiovascular/Chest: Positive for: Regular Rate, Rhythm Respiratory: Positive for: Normal Breath Sounds. Negative for: Wheezing, Respiratory Distress Extremity: Positive for: Normal ROM Neurologic/Psych: Positive for: Alert, Oriented - ECG O2 Sat by Pulse Oximetry: 99 Pulse Ox Interpretation: Normal - Other Rad CXR X-Ray: Interpreted by Me, Viewed By Me X-Ray Interpretation: no acute finding Medical Decision Making Medical Decision Makin-year-old male with fever and cough Plan: PO motrin and tylenol CXR Flu swab Flu is negative Rx zithromax and tessalon perles given. Patient was referred to clinic for follow up. Repeat temp prior to discharge 98.1. Disposition - Clinical Impression Clinical Impression: Bronchitis - Patient ED Disposition Is Patient to be Admitted: No Counseled Patient/Family Regarding: Studies Performed, Diagnosis, Need For Followup, Rx Given - Disposition Referrals: FAMILY PROVIDER,NO [Primary Care Provider] - Disposition: Routine/Home Disposition Time: 16:26 Condition: STABLE Additional Instructions: Take prescription meds as directed. Take Tylenol and Motrin for fever as needed. Follow-up with clinic in 2-3 days. Prescriptions: Azithromycin [Zithromax] 250 mg PO DAILY #6 tab Benzonatate 200 mg PO TID PRN #20 capsule PRN Reason: Cough Instructions: Acute Bronchitis Forms: [employer] (Spanish)
--- NOTE | 2018-01-09 16:06 | RAD ---
Date of service: 01/09/2018 HISTORY: cough COMPARISON: Chest radiograph dated 03/29/2016. FINDINGS: LUNGS: Prominence of pulmonary vasculature may be secondary to AP technique and/or pulmonary vascular congestion. PLEURA: Left basilar pleural thickening versus effusion. No pneumothorax apparent. CARDIOVASCULAR: Aortic atherosclerotic calcifications. Cardiomediastinal silhouette stably prominent. OSSEOUS STRUCTURES: Unchanged. VISUALIZED UPPER ABDOMEN: Normal. OTHER FINDINGS: None. IMPRESSION: Prominence of the pulmonary vasculature may be secondary to AP technique and/or pulmonary vascular congestion. No focal consolidation. Left basilar pleural thickening versus effusion.
[2018-01-09 16:18] VITALS: TEMP 98.1
[2018-01-09 16:46] VITALS: BP 138/72; PULSE 88; RESP 16
== END 2018-01-09 16:30 | disposition home or self-care (01) ==
LOC: H.ER 14:49 → SUPCPDRO 14:49 → H.ER 16:30
DX: J40 Bronchitis, not specified as acute or chronic (principal); F17.200 Nicotine dependence, unspecified, uncomplicated; Z82.49 Family history of ischemic heart disease and other diseases of the circulatory system

== ENCOUNTER 2018-01-14 20:16 | Emergency (ER) | payer SELFPAY ==
[2018-01-14 20:44] VITALS: BP 116/71; PULSE 86; RESP 20; TEMP 97.8; O2SAT 96
--- NOTE | 2018-01-14 20:53 | ED PDOC ---
HPI: Psych/Substance Abuse Time Seen by Provider: 01/14/18 20:30 Chief Complaint (Nursing): Substance Abuse Chief Complaint (Provider): substance abuse History Per: Patient, EMS Additional Complaint(s): 52 y/o male brought in by EMS for possible substance abuse. Patient well known to ED and this provider for heroin abuse. Patient was brought in for acting erratically in public. Patient denies acute medical or psychiatric complaints. Past Medical History Reviewed: Historical Data, Nursing Documentation, Vital Signs Vital Signs: Last Vital Signs Temp 97.8 F 01/14/18 20:36 Pulse 86 01/14/18 20:36 Resp 20 01/14/18 20:36 BP 116/71 01/14/18 20:36 Pulse Ox 96 01/14/18 20:36 - Medical History PMH: Back Problems Denies: HIV, HTN, Chronic Kidney Disease, Seizures, Sexually Transmitted Disease - Surgical History Surgical History: Back Surgery (herniated disc), Hernia Repair - Family History Family History: States: CAD - Home Medications Home Medications: Ambulatory Orders Medication Instructions Recorded Cephalexin [Keflex] 500 mg PO TID #21 capsule 02/02/17 traMADol [Ultram] 50 mg PO TID PRN #15 tab 02/02/17 Fluticasone Nasal [Flonase] 1 actuation NS BID PRN #1 bottle 04/07/17 Pseudoephedrine HCl [Sudafed 120 mg PO Q12 PRN #10 tablet.er 04/07/17 12-Hour] Clotrimazole 1% Cream [Lotrimin 1%] 1 appl TOP BID #1 tube 07/07/17 Ibuprofen [Motrin] 600 mg PO QID PRN #30 tab 09/26/17 Sulfamethoxazole/Trimethoprim 1 tab PO BID #14 tab 09/26/17 [Bactrim DS 800 mg-160 mg] Ibuprofen [Motrin Tab] 800 mg PO TID PRN #12 tab 12/05/17 Sulfamethoxazole/Trimethoprim 1 tab PO BID #14 tab 12/05/17 [Bactrim DS 800 mg-160 mg] Azithromycin [Zithromax] 250 mg PO DAILY #6 tab 01/09/18 Benzonatate 200 mg PO TID PRN #20 capsule 01/09/18 - Allergies Allergies/Adverse Reactions: Allergies Allergy/AdvReac Type Severity Reaction Status Date / Time No Known Allergies Allergy Verified 01/14/18 20:44 Review of Systems ROS Statement: Except As Marked, All Systems Reviewed And Found Negative Physical Exam - Reviewed Nursing Documentation Reviewed: Yes Vital Signs Reviewed: Yes - Physical Exam Appears: Positive for: Well, Non-toxic, No Acute Distress Head Exam: Positive for: ATRAUMATIC, NORMAL INSPECTION, NORMOCEPHALIC Skin: Positive for: Normal Color Eye Exam: Positive for: Normal appearance ENT: Positive for: Normal ENT Inspection Cardiovascular/Chest: Positive for: Regular Rate, Rhythm Respiratory: Positive for: Normal Breath Sounds Gastrointestinal/Abdominal: Positive for: Normal Exam Back: Positive for: Normal Inspection Extremity: Positive for: Normal ROM Neurologic/Psych: Positive for: Alert, Oriented (x3) - ECG O2 Sat by Pulse Oximetry: 96 - Progress ED Course And Treament: Patient given juice and states he is feeling better and would like to be discharged Ambulating steady gait. Vitals stable Patient requires no further intervention in the ED and is stable for discharge at this time Disposition - Clinical Impression Clinical Impression: Substance abuse - Patient ED Disposition Is Patient to be Admitted: No Counseled Patient/Family Regarding: Diagnosis, Need For Followup - Disposition Disposition: Routine/Home Disposition Time: 22:25 Condition: IMPROVED Instructions: Drug Abuse Treatment
== END 2018-01-14 22:25 | disposition home or self-care (01) ==
LOC: H.ER 20:16
DX: F19.10 Other psychoactive substance abuse, uncomplicated (principal)

== ENCOUNTER 2018-01-31 00:16 | Emergency (ER) | payer SELFPAY ==
--- NOTE | 2018-01-31 01:23 | ED PDOC ---
HPI: CCC, URI, Sore Throat Time Seen by Provider: 01/31/18 00:23 Chief Complaint (Nursing): Cough, Cold, Congestion Chief Complaint (Provider): Cough History Per: Patient History/Exam Limitations: no limitations Have you had recent travel within the past 21 days to any of the following countries: [place], [place], [place] or [place]?: No Onset/Duration Of Symptoms: Days Additional Complaint(s): 52yo male, comes to ER for evaluation of a cough, and states he has been feeling unwell since yesterday. Otherwise, he denies any fever, chills, chest pain or shortness of breath. No additional complaints. Past Medical History Reviewed: Historical Data, Nursing Documentation, Vital Signs Vital Signs: Last Vital Signs Temp 98 F 01/31/18 00:26 Pulse 81 01/31/18 00:26 Resp 18 01/31/18 00:26 BP 113/66 01/31/18 00:26 Pulse Ox 98 01/31/18 00:26 - Medical History PMH: Back Problems Denies: HIV, HTN, Chronic Kidney Disease, Seizures, Sexually Transmitted Disease - Surgical History Surgical History: Back Surgery (herniated disc), Hernia Repair - Family History Family History: States: CAD - Home Medications Home Medications: Ambulatory Orders Medication Instructions Recorded Cephalexin [Keflex] 500 mg PO TID #21 capsule 02/02/17 RX: traMADol [Ultram] 50 mg PO TID PRN #15 tab 02/02/17 Fluticasone Nasal [Flonase] 1 actuation NS BID PRN #1 bottle 04/07/17 Pseudoephedrine HCl [Sudafed 120 mg PO Q12 PRN #10 tablet.er 04/07/17 12-Hour] RX: Clotrimazole 1% Cream 1 appl TOP BID #1 tube 07/07/17 [Lotrimin 1%] Ibuprofen [Motrin] 600 mg PO QID PRN #30 tab 09/26/17 Sulfamethoxazole/Trimethoprim 1 tab PO BID #14 tab 09/26/17 [Bactrim DS 800 mg-160 mg] Ibuprofen [Motrin Tab] 800 mg PO TID PRN #12 tab 12/05/17 Sulfamethoxazole/Trimethoprim 1 tab PO BID #14 tab 12/05/17 [Bactrim DS 800 mg-160 mg] Azithromycin [Zithromax] 250 mg PO DAILY #6 tab 01/09/18 RX: Benzonatate 200 mg PO TID PRN #20 capsule 01/09/18 - Allergies Allergies/Adverse Reactions: Allergies Allergy/AdvReac Type Severity Reaction Status Date / Time No Known Allergies Allergy Verified 01/31/18 00:25 Review of Systems ROS Statement: Except As Marked, All Systems Reviewed And Found Negative Constitutional: Negative for: Fever, Chills Cardiovascular: Negative for: Chest Pain Respiratory: Positive for: Cough. Negative for: Shortness of Breath Physical Exam - Reviewed Nursing Documentation Reviewed: Yes Vital Signs Reviewed: Yes - Physical Exam Appears: Positive for: Non-toxic Head Exam: Positive for: ATRAUMATIC, NORMAL INSPECTION, NORMOCEPHALIC Skin: Positive for: Normal Color Eye Exam: Positive for: Normal appearance Neck: Positive for: Normal, Supple Cardiovascular/Chest: Positive for: Regular Rate, Rhythm Respiratory: Positive for: Normal Breath Sounds. Negative for: Wheezing Gastrointestinal/Abdominal: Positive for: Normal Exam, Soft Back: Positive for: Normal Inspection Extremity: Positive for: Normal ROM Neurologic/Psych: Positive for: Alert, Oriented. Negative for: Motor/Sensory Deficits - ECG O2 Sat by Pulse Oximetry: 98 (RA) Pulse Ox Interpretation: Normal Medical Decision Making Medical Decision Making: Impression: Cough x 1 day Plan: -- Chest x-ray -- Rapid flu 0242 Chest x-ray reviewed, no active disease. Serology results indicate patient negative for influenza. Scribe Attestation: Documented by Emilia Escalante, acting as a scribe for Luis Coates MD. Provider Scribe Attestation: All medical record entries made by the Scribe were at my direction and personally dictated by me. I have reviewed the chart and agree that the record accurately reflects my personal performance of the history, physical exam, medical decision making, and the department course for this patient. I have also personally directed, reviewed, and agree with the discharge instructions and disposition. Disposition - Clinical Impression Clinical Impression: Upper respiratory infection - Disposition Disposition: Routine/Home Disposition Time: 05:00 Condition: STABLE Instructions: Viral Upper Respiratory Infection, Adult (DC) Forms: [employer] (Maltese)
[2018-01-31 06:29] VITALS: BP 108/63; PULSE 68; RESP 18; TEMP 98.7
--- NOTE | 2018-01-31 08:43 | RAD ---
Date of service: 01/31/2018 HISTORY: cough COMPARISON: Portable chest 01/09/2018. TECHNIQUE: Chest PA and lateral FINDINGS: LUNGS: No active pulmonary disease. PLEURA: No significant pleural effusion identified. No pneumothorax apparent. CARDIOVASCULAR: No aortic atherosclerotic calcification present. Normal cardiac size. No pulmonary vascular congestion. OSSEOUS STRUCTURES: No significant abnormalities. VISUALIZED UPPER ABDOMEN: Normal. OTHER FINDINGS: None. IMPRESSION: No interval pulmonary vascular congestion or airspace disease bilaterally.
[2018-01-31 19:34] VITALS: O2SAT 98
== END 2018-01-31 05:40 | disposition home or self-care (01) ==
LOC: H.ER 00:16
DX: J06.9 Acute upper respiratory infection, unspecified (principal)

== ENCOUNTER 2018-02-09 17:38 | Emergency (ER) | payer SELFPAY ==
[2018-02-09 17:56] VITALS: BP 127/60; PULSE 98; RESP 20; TEMP 98; O2SAT 98
== END 2018-02-09 18:30 | disposition left against medical advice (07) ==
LOC: H.ER 17:38
DX: Z02.89 Encounter for other administrative examinations (principal)

== ENCOUNTER 2018-02-25 09:31 | Emergency (ER) | payer SELFPAY ==
[2018-02-25 10:00] VITALS: TEMP 97.8; O2SAT 97
--- NOTE | 2018-02-25 11:35 | ED PDOC ---
HPI: Psych/Substance Abuse Time Seen by Provider: 02/25/18 09:35 Chief Complaint (Nursing): Psychiatric Evaluation Chief Complaint (Provider): Psychiatric Evaluation History Per: Patient History/Exam Limitations: no limitations Onset/Duration Of Symptoms: Mins (prior to arrival) Current Symptoms Are (Timing): Still Present Suicide/Self Injury Attempted (Context): None Modifying Factor(s): Other (heroin) Associated Symptoms: Agitation Additional Complaint(s): 52 year old male with a history of heroin abuse presents to the ED via EMS for psychiatric evaluation. Patient was brought in for acting erratically in public. He is well known to the ED and this provider for multiple visits of similar symptoms. There are no signs of gross trauma and patient is ambulating with a steady gait. Denies acute medical or psychiatric complaints. PMD: none provided Past Medical History Reviewed: Historical Data, Nursing Documentation, Vital Signs Vital Signs: Last Vital Signs Temp 97.8 F 02/25/18 09:59 Pulse 101 H 02/25/18 09:59 Resp 22 02/25/18 09:59 BP 150/104 H 02/25/18 09:59 Pulse Ox 97 02/25/18 09:59 - Medical History PMH: Back Problems Denies: HIV, HTN, Chronic Kidney Disease, Seizures, Sexually Transmitted Disease - Surgical History Surgical History: Back Surgery (herniated disc), Hernia Repair - Family History Family History: States: CAD - Home Medications Home Medications: Ambulatory Orders Medication Instructions Recorded Cephalexin [Keflex] 500 mg PO TID #21 capsule 02/02/17 traMADol [Ultram] 50 mg PO TID PRN #15 tab 02/02/17 Fluticasone Nasal [Flonase] 1 actuation NS BID PRN #1 bottle 04/07/17 Pseudoephedrine HCl [Sudafed 120 mg PO Q12 PRN #10 tablet.er 04/07/17 12-Hour] Clotrimazole 1% Cream [Lotrimin 1%] 1 appl TOP BID #1 tube 07/07/17 Ibuprofen [Motrin] 600 mg PO QID PRN #30 tab 09/26/17 Sulfamethoxazole/Trimethoprim 1 tab PO BID #14 tab 09/26/17 [Bactrim DS 800 mg-160 mg] Ibuprofen [Motrin Tab] 800 mg PO TID PRN #12 tab 12/05/17 Sulfamethoxazole/Trimethoprim 1 tab PO BID #14 tab 12/05/17 [Bactrim DS 800 mg-160 mg] Azithromycin [Zithromax] 250 mg PO DAILY #6 tab 01/09/18 Benzonatate 200 mg PO TID PRN #20 capsule 01/09/18 - Allergies Allergies/Adverse Reactions: Allergies Allergy/AdvReac Type Severity Reaction Status Date / Time No Known Allergies Allergy Verified 02/09/18 17:55 Review of Systems ROS Statement: Except As Marked, All Systems Reviewed And Found Negative Constitutional: Negative for: Other (signs of gross trauma) Psych: Positive for: Other (agitated) Physical Exam - Reviewed Nursing Documentation Reviewed: Yes Vital Signs Reviewed: Yes - Physical Exam Appears: Positive for: No Acute Distress (no signs of gross trauma) Head Exam: Positive for: ATRAUMATIC, NORMAL INSPECTION, NORMOCEPHALIC Skin: Positive for: Normal Color, Warm, Dry Eye Exam: Positive for: EOMI, Normal appearance, PERRL Cardiovascular/Chest: Positive for: Regular Rate, Rhythm. Negative for: Murmur Respiratory: Positive for: Normal Breath Sounds. Negative for: Respiratory Distress Gastrointestinal/Abdominal: Positive for: Soft. Negative for: Tenderness Neurologic/Psych: Positive for: Alert, Oriented, Gait (steady). Negative for: Motor/Sensory Deficits - ECG O2 Sat by Pulse Oximetry: 97 (RA) Pulse Ox Interpretation: Normal Medical Decision Making Medical Decision Makin:35 Initial Plan: --Will observe in the ED pending sobriety. 11:23 --Patient was found to be ambulating steadily and walked out of the ER prior to receiving discharge instructions. Scribe Attestation: Documented by Farideh Miranda acting as a scribe for Shlomo Banuelos III, DO Provider Scribe Attestation: All medical record entries made by the Scribe were at my direction and personally dictated by me. I have reviewed the chart and agree that the record accurately reflects my personal performance of the history, physical exam, medical decision making, and the department course for this patient. I have also personally directed, reviewed, and agree with the discharge instructions and disposition. Disposition - Clinical Impression Clinical Impression: Opiate abuse, continuous - Patient ED Disposition Is Patient to be Admitted: No - Disposition Disposition Time: 11:23 Condition: STABLE Instructions: Drug Abuse Treatment, Opioid Use Disorder Forms: [employer] (Georgian)
[2018-02-25 11:54] VITALS: BP 145/90; PULSE 95; RESP 20
== END 2018-02-25 11:20 | disposition left against medical advice (07) ==
LOC: H.ER 09:31
DX: F11.10 Opioid abuse, uncomplicated (principal)

== ENCOUNTER 2018-02-25 18:11 | Emergency (ER) | payer SELFPAY ==
[2018-02-25 18:54] VITALS: BP 144/88; PULSE 94; RESP 16; TEMP 98; O2SAT 98
--- NOTE | 2018-02-25 19:32 | ED PDOC ---
HPI: Psych/Substance Abuse Time Seen by Provider: 02/25/18 18:15 Chief Complaint (Nursing): Substance Abuse Chief Complaint (Provider): Substance abuse Additional Complaint(s): 52 year old male with a history of heroin abuse presents to the ED via EMS for psychiatric evaluation. Patient was brought in for acting erratically in public. He is well known to the ED and this provider for multiple visits of similar symptoms. There are no signs of gross trauma and patient is ambulating with a steady gait. Denies acute medical or psychiatric complaints. Past Medical History Reviewed: Nursing Documentation, Vital Signs Vital Signs: Last Vital Signs Temp 98.0 F 02/25/18 18:52 Pulse 94 H 02/25/18 18:52 Resp 16 02/25/18 18:52 BP 144/88 02/25/18 18:52 Pulse Ox 98 02/25/18 18:52 - Medical History PMH: Back Problems Denies: HIV, HTN, Chronic Kidney Disease, Seizures, Sexually Transmitted Disease - Surgical History Surgical History: Back Surgery (herniated disc), Hernia Repair - Family History Family History: States: CAD - Living Arrangements Living Arrangements: With Family - Social History Current smoker - smoking cessation education provided: No Alcohol: > 2 Drinks/Day Drugs: Opiates - Home Medications Home Medications: Ambulatory Orders Medication Instructions Recorded Cephalexin [Keflex] 500 mg PO TID #21 capsule 02/02/17 traMADol [Ultram] 50 mg PO TID PRN #15 tab 02/02/17 Fluticasone Nasal [Flonase] 1 actuation NS BID PRN #1 bottle 04/07/17 Pseudoephedrine HCl [Sudafed 120 mg PO Q12 PRN #10 tablet.er 04/07/17 12-Hour] Clotrimazole 1% Cream [Lotrimin 1%] 1 appl TOP BID #1 tube 07/07/17 Ibuprofen [Motrin] 600 mg PO QID PRN #30 tab 09/26/17 Sulfamethoxazole/Trimethoprim 1 tab PO BID #14 tab 09/26/17 [Bactrim DS 800 mg-160 mg] Ibuprofen [Motrin Tab] 800 mg PO TID PRN #12 tab 12/05/17 Sulfamethoxazole/Trimethoprim 1 tab PO BID #14 tab 12/05/17 [Bactrim DS 800 mg-160 mg] Azithromycin [Zithromax] 250 mg PO DAILY #6 tab 01/09/18 Benzonatate 200 mg PO TID PRN #20 capsule 01/09/18 - Allergies Allergies/Adverse Reactions: Allergies Allergy/AdvReac Type Severity Reaction Status Date / Time No Known Allergies Allergy Verified 02/25/18 18:52 Review of Systems ROS Statement: Except As Marked, All Systems Reviewed And Found Negative Physical Exam - Reviewed Nursing Documentation Reviewed: Yes Vital Signs Reviewed: Yes - Physical Exam Appears: Positive for: Well, Non-toxic, No Acute Distress Head Exam: Positive for: ATRAUMATIC, NORMAL INSPECTION, NORMOCEPHALIC Skin: Positive for: Normal Color, Warm, DRY Eye Exam: Positive for: EOMI, Normal appearance, PERRL ENT: Positive for: Normal ENT Inspection Neck: Positive for: Normal, Painless ROM Cardiovascular/Chest: Positive for: Regular Rate, Rhythm Respiratory: Positive for: CNT, Normal Breath Sounds Gastrointestinal/Abdominal: Positive for: Normal Exam, Soft Back: Positive for: Normal Inspection Extremity: Positive for: Normal ROM Neurologic/Psych: Positive for: Alert, Oriented - ECG O2 Sat by Pulse Oximetry: 98 Medical Decision Making Medical Decision Making: Initial Plan: --Will observe in the ED pending sobriety. 1900 --Patient was found to be ambulating steadily and walked out of the ER prior to receiving discharge instructions. Disposition - Clinical Impression Clinical Impression: Substance abuse - Patient ED Disposition Is Patient to be Admitted: No - Disposition Disposition: Routine/Home Disposition Time: 19:33 Condition: STABLE Forms: [employer] (Serbian)
== END 2018-02-25 19:37 | disposition home or self-care (01) ==
LOC: H.ER 18:11
DX: F11.10 Opioid abuse, uncomplicated (principal)

== ENCOUNTER 2018-03-04 20:20 | Emergency (ER) | payer SELFPAY ==
[2018-03-04 20:25] VITALS: BP 142/87; PULSE 87; RESP 24; TEMP 98.4; O2SAT 98
--- NOTE | 2018-03-04 22:32 | ED PDOC ---
HPI: Psych/Substance Abuse Time Seen by Provider: 03/04/18 20:39 Chief Complaint (Nursing): Substance Abuse Chief Complaint (Provider): Heroin abuse, denies complaints, awake and alert History Per: Patient History/Exam Limitations: no limitations Onset/Duration Of Symptoms: Days Current Symptoms Are (Timing): Still Present Additional Complaint(s): 52 yo male with history of heroin abuse presents for evaluation. PT denies complaint. PT seen in ER often and appears at baseline. Pt asking for juice. Past Medical History Reviewed: Historical Data, Nursing Documentation, Vital Signs Vital Signs: Last Vital Signs Temp 98.4 F 03/04/18 20:23 Pulse 87 03/04/18 20:23 Resp 24 03/04/18 20:23 BP 142/87 03/04/18 20:23 Pulse Ox 98 03/04/18 20:23 - Medical History PMH: Back Problems Denies: HIV, HTN, Chronic Kidney Disease, Seizures, Sexually Transmitted Disease - Surgical History Surgical History: Back Surgery (herniated disc), Hernia Repair - Family History Family History: States: CAD - Living Arrangements Living Arrangements: With Family - Social History Current smoker - smoking cessation education provided: No Alcohol: None Drugs: Opiates - Home Medications Home Medications: Ambulatory Orders Medication Instructions Recorded Cephalexin [Keflex] 500 mg PO TID #21 capsule 02/02/17 traMADol [Ultram] 50 mg PO TID PRN #15 tab 02/02/17 Fluticasone Nasal [Flonase] 1 actuation NS BID PRN #1 bottle 04/07/17 Pseudoephedrine HCl [Sudafed 120 mg PO Q12 PRN #10 tablet.er 04/07/17 12-Hour] Clotrimazole 1% Cream [Lotrimin 1%] 1 appl TOP BID #1 tube 07/07/17 Ibuprofen [Motrin] 600 mg PO QID PRN #30 tab 09/26/17 Sulfamethoxazole/Trimethoprim 1 tab PO BID #14 tab 09/26/17 [Bactrim DS 800 mg-160 mg] Ibuprofen [Motrin Tab] 800 mg PO TID PRN #12 tab 12/05/17 Sulfamethoxazole/Trimethoprim 1 tab PO BID #14 tab 12/05/17 [Bactrim DS 800 mg-160 mg] Azithromycin [Zithromax] 250 mg PO DAILY #6 tab 01/09/18 Benzonatate 200 mg PO TID PRN #20 capsule 01/09/18 - Allergies Allergies/Adverse Reactions: Allergies Allergy/AdvReac Type Severity Reaction Status Date / Time No Known Allergies Allergy Verified 02/25/18 18:52 Review of Systems ROS Statement: Except As Marked, All Systems Reviewed And Found Negative Constitutional: Negative for: Fever, Chills Cardiovascular: Negative for: Chest Pain, Palpitations, Orthopnea, Paroxysmal Noc. Dyspnea Respiratory: Negative for: Cough Gastrointestinal: Negative for: Nausea, Vomiting, Abdominal Pain, Diarrhea Neurological: Negative for: Weakness, Numbness, Incoordination Physical Exam - Reviewed Nursing Documentation Reviewed: Yes Vital Signs Reviewed: Yes - Physical Exam Appears: Positive for: Well, Non-toxic, No Acute Distress Head Exam: Positive for: ATRAUMATIC, NORMAL INSPECTION, NORMOCEPHALIC Skin: Positive for: Normal Color, Warm, DRY Eye Exam: Positive for: Normal appearance ENT: Positive for: Normal ENT Inspection Neck: Positive for: Normal, Painless ROM Cardiovascular/Chest: Positive for: Regular Rate, Rhythm Respiratory: Positive for: CNT, Normal Breath Sounds Back: Positive for: Normal Inspection Extremity: Positive for: Normal ROM Neurologic/Psych: Positive for: Alert, Oriented - ECG O2 Sat by Pulse Oximetry: 98 Medical Decision Making Medical Decision Making: Drank juice in ER. Disposition - Clinical Impression Clinical Impression: Opiate abuse, continuous - Disposition Disposition: Routine/Home Disposition Time: 00:06 Condition: STABLE Instructions: Drug Abuse Treatment Forms: [employer] (Maori)
== END 2018-03-05 00:15 | disposition home or self-care (01) ==
LOC: H.ER 20:20
DX: F11.10 Opioid abuse, uncomplicated (principal)

== ENCOUNTER 2018-03-11 23:47 | Emergency (ER) | payer SELFPAY ==
[2018-03-11 23:51] VITALS: O2SAT 99
--- NOTE | 2018-03-12 00:32 | ED PDOC ---
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 He offers no complaints and is aaox3 at this time, requesting a juice. PMD: none provided Past Medical History Reviewed: Historical Data, Nursing Documentation, Vital Signs Vital Signs: Last Vital Signs Temp 98.0 F 03/11/18 23:48 Pulse 98 H 03/11/18 23:48 Resp 16 03/11/18 23:48 BP 123/59 L 03/11/18 23:48 Pulse Ox 99 03/11/18 23:48 - Medical History PMH: Back Problems Denies: HIV, HTN, Chronic Kidney Disease, Seizures, Sexually Transmitted Disease - Surgical History Surgical History: Back Surgery (herniated disc), Hernia Repair - Family History Family History: States: CAD - Living Arrangements Living Arrangements: Other (non domiciled) - Social History Drugs: Other (hx of abuse) - Home Medications Home Medications: Ambulatory Orders Medication Instructions Recorded Cephalexin [Keflex] 500 mg PO TID #21 capsule 02/02/17 traMADol [Ultram] 50 mg PO TID PRN #15 tab 02/02/17 Fluticasone Nasal [Flonase] 1 actuation NS BID PRN #1 bottle 04/07/17 Pseudoephedrine HCl [Sudafed 120 mg PO Q12 PRN #10 tablet.er 04/07/17 12-Hour] Clotrimazole 1% Cream [Lotrimin 1%] 1 appl TOP BID #1 tube 07/07/17 Ibuprofen [Motrin] 600 mg PO QID PRN #30 tab 09/26/17 Sulfamethoxazole/Trimethoprim 1 tab PO BID #14 tab 09/26/17 [Bactrim DS 800 mg-160 mg] Ibuprofen [Motrin Tab] 800 mg PO TID PRN #12 tab 12/05/17 Sulfamethoxazole/Trimethoprim 1 tab PO BID #14 tab 12/05/17 [Bactrim DS 800 mg-160 mg] Azithromycin [Zithromax] 250 mg PO DAILY #6 tab 01/09/18 Benzonatate 200 mg PO TID PRN #20 capsule 01/09/18 - Allergies Allergies/Adverse Reactions: Allergies Allergy/AdvReac Type Severity Reaction Status Date / Time No Known Allergies Allergy Verified 03/11/18 23:48 Review of Systems ROS Statement: Except As Marked, All Systems Reviewed And Found Negative Psych: Positive for: Other (possible substance abuse) Physical Exam - Reviewed Nursing Documentation Reviewed: Yes Vital Signs Reviewed: Yes - Physical Exam Appears: Positive for: No Acute Distress Head Exam: Positive for: ATRAUMATIC, NORMOCEPHALIC Skin: Positive for: Normal Color Eye Exam: Positive for: Normal appearance, EOMI, PERRL Cardiovascular/Chest: Positive for: Regular Rate, Rhythm Respiratory: Positive for: Normal Breath Sounds. Negative for: Respiratory Distress Extremity: Positive for: Normal ROM. Negative for: Tenderness, Swelling Neurologic/Psych: Positive for: Alert, Oriented (x3) - ECG O2 Sat by Pulse Oximetry: 99 (RA) Pulse Ox Interpretation: Normal Medical Decision Making Medical Decision Making: Time: 28 Impression: substance abuse Initial Plan: --Patient is requesting he wants to go home after having his juice. He is stable for discharge at this time with a steady gait and aaox3. Scribe Attestation: Documented by Alice Clements, acting as a scribe for Hannah Morrell MD. Provider Scribe Attestation: All medical record entries made by the Scribe were at my direction and personally dictated by me. I have reviewed the chart and agree that the record accurately reflects my personal performance of the history, physical exam, medical decision making, and the department course for this patient. I have also personally directed, reviewed, and agree with the discharge instructions and disposition. Disposition - Clinical Impression Clinical Impression: Opiate abuse, continuous - Patient ED Disposition Is Patient to be Admitted: No - Disposition Disposition: Routine/Home Disposition Time: 00:30 Condition: STABLE
[2018-03-12 00:41] VITALS: BP 126/69; PULSE 84; RESP 18; TEMP 98.1
== END 2018-03-12 00:33 | disposition home or self-care (01) ==
LOC: H.ER 23:47
DX: F11.10 Opioid abuse, uncomplicated (principal)

== ENCOUNTER 2018-03-12 15:36 | Emergency (ER) | payer SELFPAY ==
[2018-03-12 15:41] VITALS: O2SAT 97
--- NOTE | 2018-03-12 16:25 | ED PDOC ---
HPI: Psych/Substance Abuse Time Seen by Provider: 03/12/18 15:50 Chief Complaint (Nursing): Substance Abuse Chief Complaint (Provider): Substance abuse History Per: Patient History/Exam Limitations: no limitations Additional Complaint(s): 52yo male, well known to ER for multiple visits, brought to ER by EMS for possible substance abuse; he was on the street and appeared agitated. Patient has no medical complaints at this time; states he feels well. Past Medical History Reviewed: Historical Data, Nursing Documentation, Vital Signs Vital Signs: Last Vital Signs Temp 98.9 F 03/12/18 15:40 Pulse 82 03/12/18 15:40 Resp 18 03/12/18 15:40 BP 130/89 03/12/18 15:44 Pulse Ox 97 03/12/18 15:40 - Medical History PMH: Back Problems Denies: HIV, HTN, Chronic Kidney Disease, Seizures, Sexually Transmitted Disease - Surgical History Surgical History: Back Surgery (herniated disc), Hernia Repair - Family History Family History: States: CAD - Home Medications Home Medications: Ambulatory Orders Medication Instructions Recorded Cephalexin [Keflex] 500 mg PO TID #21 capsule 02/02/17 RX: traMADol [Ultram] 50 mg PO TID PRN #15 tab 02/02/17 Fluticasone Nasal [Flonase] 1 actuation NS BID PRN #1 bottle 04/07/17 Pseudoephedrine HCl [Sudafed 120 mg PO Q12 PRN #10 tablet.er 04/07/17 12-Hour] RX: Clotrimazole 1% Cream 1 appl TOP BID #1 tube 07/07/17 [Lotrimin 1%] Ibuprofen [Motrin] 600 mg PO QID PRN #30 tab 09/26/17 Sulfamethoxazole/Trimethoprim 1 tab PO BID #14 tab 09/26/17 [Bactrim DS 800 mg-160 mg] Ibuprofen [Motrin Tab] 800 mg PO TID PRN #12 tab 12/05/17 Sulfamethoxazole/Trimethoprim 1 tab PO BID #14 tab 12/05/17 [Bactrim DS 800 mg-160 mg] Azithromycin [Zithromax] 250 mg PO DAILY #6 tab 01/09/18 RX: Benzonatate 200 mg PO TID PRN #20 capsule 01/09/18 - Allergies Allergies/Adverse Reactions: Allergies Allergy/AdvReac Type Severity Reaction Status Date / Time No Known Allergies Allergy Verified 03/12/18 15:44 Review of Systems ROS Statement: Except As Marked, All Systems Reviewed And Found Negative Psych: Positive for: Other (substance abuse) Physical Exam - Reviewed Nursing Documentation Reviewed: Yes Vital Signs Reviewed: Yes - Physical Exam Appears: Positive for: No Acute Distress Head Exam: Positive for: ATRAUMATIC, NORMAL INSPECTION, NORMOCEPHALIC Skin: Positive for: Normal Color Cardiovascular/Chest: Positive for: Regular Rate, Rhythm Respiratory: Positive for: Normal Breath Sounds Extremity: Positive for: Normal ROM Neurologic/Psych: Positive for: Alert, Oriented, Gait (steady). Negative for: Motor/Sensory Deficits - ECG O2 Sat by Pulse Oximetry: 97 (RA) Pulse Ox Interpretation: Normal Medical Decision Making Medical Decision Making: Assessment: 52yo male, well known to ER brought for evaluation s/p possible substance abuse Patient is awake, alert and oriented x 3 with steady gait. Plan: -- Patient is is no acute distress and stable for discharge home. Scribe Attestation: Documented by Emilia Escalante acting as a scribe for DILCIA Moore. Provider Attestation: All medical record entries made by the Scribe were at my direction and personally dictated by me. I have reviewed the chart and agree that the record accurately reflects my personal performance of the history, physical exam, medical decision making, and the department course for this patient. I have also personally directed, reviewed, and agree with the discharge instructions and disposition. Disposition - Clinical Impression Clinical Impression: Drug abuse - Disposition Referrals: [facility] [Outside] Disposition: Routine/Home Disposition Time: 16:29 Condition: STABLE Instructions: Drug Abuse and Drug Addiction (DC) Forms: [employer] (Malawian)
[2018-03-12 16:30] VITALS: BP 121/78; PULSE 84; RESP 20; TEMP 98.8
== END 2018-03-12 16:20 | disposition home or self-care (01) ==
LOC: H.ER 15:36
DX: F19.10 Other psychoactive substance abuse, uncomplicated (principal)

== ENCOUNTER 2018-03-29 14:27 | Emergency (ER) | payer SELFPAY ==
[2018-03-29 14:33] VITALS: BP 138/78; RESP 18; TEMP 97.9
[2018-03-29 15:54] VITALS: PULSE 79; O2SAT 98
--- NOTE | 2018-03-29 17:03 | ED PDOC ---
HPI: Psych/Substance Abuse Time Seen by Provider: 03/29/18 14:48 Chief Complaint (Nursing): Psychiatric Evaluation Chief Complaint (Provider): Psychiatric Evaluation History Per: Patient History/Exam Limitations: intoxication Additional Complaint(s): 52 y/o male with a history of heroin abuse brought into the ED by EMS for psychiatric evaluation. Patient is well known to this provider and ED staff for frequent visits of the same symptoms. Patient admits to heroine and cocaine use. Patient seen ambulating in the ER with a steady gait, going from nodding off into sleep to jumping and yelling stating "I love you". Otherwise, there are no signs of gross trauma. PMD: no provider Past Medical History Reviewed: Historical Data, Nursing Documentation, Vital Signs Vital Signs: Last Vital Signs Temp 97.9 F 03/29/18 14:31 Pulse 79 03/29/18 15:54 Resp 18 03/29/18 14:31 BP 138/78 03/29/18 14:31 Pulse Ox 98 03/29/18 15:54 JOSH Report Viewed: Yes - Medical History PMH: Back Problems Denies: HIV, HTN, Chronic Kidney Disease, Seizures, Sexually Transmitted Disease - Surgical History Surgical History: Back Surgery (herniated disc), Hernia Repair - Family History Family History: States: CAD - Social History Drugs: Cocaine, Other (heroin) - Home Medications Home Medications: Ambulatory Orders Medication Instructions Recorded Cephalexin [Keflex] 500 mg PO TID #21 capsule 02/02/17 RX: traMADol [Ultram] 50 mg PO TID PRN #15 tab 02/02/17 Fluticasone Nasal [Flonase] 1 actuation NS BID PRN #1 bottle 04/07/17 Pseudoephedrine HCl [Sudafed 120 mg PO Q12 PRN #10 tablet.er 04/07/17 12-Hour] RX: Clotrimazole 1% Cream 1 appl TOP BID #1 tube 07/07/17 [Lotrimin 1%] Ibuprofen [Motrin] 600 mg PO QID PRN #30 tab 09/26/17 Sulfamethoxazole/Trimethoprim 1 tab PO BID #14 tab 09/26/17 [Bactrim DS 800 mg-160 mg] Ibuprofen [Motrin Tab] 800 mg PO TID PRN #12 tab 12/05/17 Sulfamethoxazole/Trimethoprim 1 tab PO BID #14 tab 12/05/17 [Bactrim DS 800 mg-160 mg] Azithromycin [Zithromax] 250 mg PO DAILY #6 tab 01/09/18 RX: Benzonatate 200 mg PO TID PRN #20 capsule 01/09/18 - Allergies Allergies/Adverse Reactions: Allergies Allergy/AdvReac Type Severity Reaction Status Date / Time No Known Allergies Allergy Verified 03/12/18 15:44 Review of Systems ROS Statement: Except As Marked, All Systems Reviewed And Found Negative Psych: Positive for: Other (substance abuse) Physical Exam - Reviewed Nursing Documentation Reviewed: Yes Vital Signs Reviewed: Yes - Physical Exam Appears: Positive for: No Acute Distress Head Exam: Positive for: ATRAUMATIC, NORMOCEPHALIC Skin: Positive for: Normal Color, Warm, Dry Neck: Positive for: Normal, Painless ROM, Supple Cardiovascular/Chest: Positive for: Regular Rate, Rhythm. Negative for: Murmur Respiratory: Positive for: Normal Breath Sounds. Negative for: Respiratory Distress Gastrointestinal/Abdominal: Positive for: Normal Exam, Soft. Negative for: Tenderness Back: Positive for: Normal Inspection. Negative for: L CVA Tenderness, R CVA Tenderness, Vertebral Tenderness Extremity: Positive for: Normal ROM. Negative for: Pedal Edema, Deformity Neurologic/Psych: Positive for: Alert, Oriented, Other (Jumping around in exam room. ). Negative for: Motor/Sensory Deficits - ECG O2 Sat by Pulse Oximetry: 98 (RA) Pulse Ox Interpretation: Normal Medical Decision Making Medical Decision Making: drug abuse, chronic pt stable gait, ate tray of food, stable for dc and outpt follow up however pt left prior to getting his dc papers __ Scribe Attestation: Documented by Isabel Bronson, acting as a scribe for Baljeet Villegas MD. Provider Scribe Attestation: All medical record entries made by the Scribe were at my direction and personally dictated by me. I have reviewed the chart and agree that the record accurately reflects my personal performance of the history, physical exam, medical decision making, and the department course for this patient. I have also personally directed, reviewed, and agree with the discharge instructions and disposition. Disposition - Clinical Impression Clinical Impression: Opiate abuse, continuous - Patient ED Disposition Is Patient to be Admitted: No Counseled Patient/Family Regarding: Studies Performed, Diagnosis, Need For Followup - Disposition Disposition: Routine/Home Disposition Time: 16:00 Condition: IMPROVED Additional Instructions: follow up with your doctor return to the ED with any worsening or concerning symptoms Instructions: Drug Abuse and Drug Addiction (DC) Forms: [employer] (Nepalese)
== END 2018-03-29 18:00 | disposition home or self-care (01) ==
LOC: H.ER 14:27
DX: F11.10 Opioid abuse, uncomplicated (principal); Z82.49 Family history of ischemic heart disease and other diseases of the circulatory system

== ENCOUNTER 2018-04-03 20:28 | Emergency (ER) | payer SELFPAY ==
[2018-04-03 21:13] VITALS: RESP 16; O2SAT 95
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
[2018-04-03 23:41] VITALS: BP 102/64; PULSE 66
== END 2018-04-04 01:29 | disposition home or self-care (01) ==
LOC: H.ER 20:28
DX: F19.94 Other psychoactive substance use, unspecified with psychoactive substance-induced mood disorder (principal)
CPT/HCPCS: 82948; 96372; 99285; J1630; J2060

== ENCOUNTER 2018-04-19 16:58 | Emergency (ER) | payer SELFPAY ==
[2018-04-19 17:23] VITALS: BP 110/78; PULSE 98; RESP 20; TEMP 97.6; O2SAT 97
--- NOTE | 2018-04-19 18:32 | ED PDOC ---
HPI: Psych/Substance Abuse Time Seen by Provider: 04/19/18 17:49 Chief Complaint (Nursing): Substance Abuse Chief Complaint (Provider): substance abuse History Per: Patient, EMS History/Exam Limitations: no limitations Onset/Duration Of Symptoms: Hrs Additional Complaint(s): Abimael Terrazas is a 52 year old male, with a past medical history of polysubstance abuse, who was brought to the emergency department by EMS and [place] [employer] due to erratic behavior. Upon arrival to ED patient was screaming and jumping. Patient evaluated and states he has no medical complaints and admits snorting heroin today and drinking alcohol. He denies any head trauma, fall, chest pain, dizziness or other medical complaints. Of note, patient is well known to provider and ED staff for multiple visits secondary to substance abuse. PMD: None provided Past Medical History Reviewed: Historical Data, Nursing Documentation, Vital Signs Vital Signs: Last Vital Signs Temp 97.6 F 04/19/18 17:21 Pulse 98 H 04/19/18 17:21 Resp 20 04/19/18 17:21 BP 110/78 04/19/18 17:21 Pulse Ox 97 04/19/18 17:21 - Medical History PMH: Back Problems Denies: HIV, HTN, Chronic Kidney Disease, Seizures, Sexually Transmitted Disease - Surgical History Surgical History: Back Surgery (herniated disc), Hernia Repair - Family History Family History: States: CAD - Social History Current smoker - smoking cessation education provided: Yes (Heavy smoker) Alcohol: < 2 Drinks/Day Drugs: Opiates (heroin) - Home Medications Home Medications: Ambulatory Orders Medication Instructions Recorded Cephalexin [Keflex] 500 mg PO TID #21 capsule 02/02/17 traMADol [Ultram] 50 mg PO TID PRN #15 tab 02/02/17 Fluticasone Nasal [Flonase] 1 actuation NS BID PRN #1 bottle 04/07/17 Pseudoephedrine HCl [Sudafed 120 mg PO Q12 PRN #10 tablet.er 04/07/17 12-Hour] Clotrimazole 1% Cream [Lotrimin 1%] 1 appl TOP BID #1 tube 07/07/17 Ibuprofen [Motrin] 600 mg PO QID PRN #30 tab 09/26/17 Sulfamethoxazole/Trimethoprim 1 tab PO BID #14 tab 09/26/17 [Bactrim DS 800 mg-160 mg] Ibuprofen [Motrin Tab] 800 mg PO TID PRN #12 tab 12/05/17 Sulfamethoxazole/Trimethoprim 1 tab PO BID #14 tab 12/05/17 [Bactrim DS 800 mg-160 mg] Azithromycin [Zithromax] 250 mg PO DAILY #6 tab 01/09/18 Benzonatate 200 mg PO TID PRN #20 capsule 01/09/18 - Allergies Allergies/Adverse Reactions: Allergies Allergy/AdvReac Type Severity Reaction Status Date / Time No Known Allergies Allergy Verified 03/12/18 15:44 Review of Systems ROS Statement: Except As Marked, All Systems Reviewed And Found Negative Cardiovascular: Negative for: Chest Pain Neurological: Negative for: Dizziness Psych: Positive for: Other (erratic behavior) Physical Exam - Reviewed Nursing Documentation Reviewed: Yes Vital Signs Reviewed: Yes - Physical Exam Appears: Positive for: No Acute Distress Head Exam: Positive for: ATRAUMATIC, NORMAL INSPECTION, NORMOCEPHALIC Skin: Positive for: Normal Color, Warm, Dry Eye Exam: Positive for: Normal appearance, EOMI, PERRL Neck: Positive for: Normal, Painless ROM Cardiovascular/Chest: Positive for: Regular Rate, Rhythm. Negative for: Murmur Respiratory: Positive for: Normal Breath Sounds. Negative for: Respiratory Distress Extremity: Positive for: Normal ROM (upper and lower extremities). Negative for: Tenderness, Deformity, Swelling Neurologic/Psych: Positive for: Alert, Oriented (x3), Gait (stable), Other (coherent speech) - ECG O2 Sat by Pulse Oximetry: 97 (RA) Pulse Ox Interpretation: Normal Medical Decision Making Medical Decision Making: Time: 17:49 Initial Impression: Polysubstance abuse Initial Plan: --Reevaluation 18:25 -Upon provider reevaluation patient is feeling better, is medically stable, and requires no further treatment in the ED at this time. Patient will be discharged home. Counseling was provided and all questions were answered regarding diagnosis. There is agreement to discharge plan. ----- Scribe Attestation: Documented by Joe Mcneill, acting as a scribe for Alka Blue PA-C. Provider Scribe Attestation: All medical record entries made by the Scribe were at my direction and p ersonally dictated by me. I have reviewed the chart and agree that the record accurately reflects my personal performance of the history, physical exam, medical decision making, and the department course for this patient. I have also personally directed, reviewed, and agree with the discharge instructions and disposition. Disposition - Clinical Impression Clinical Impression: Opiate abuse, continuous - Disposition Referrals: [facility] [Outside] Disposition: Routine/Home Disposition Time: 18:25 Condition: STABLE Instructions: Drug Abuse and Drug Addiction (DC) Forms: [employer] (Mexican) Print Language: MAURITIAN
== END 2018-04-19 18:24 | disposition home or self-care (01) ==
LOC: H.ER 16:58
DX: F11.10 Opioid abuse, uncomplicated (principal); F17.200 Nicotine dependence, unspecified, uncomplicated

== ENCOUNTER 2018-04-21 14:17 | Emergency (ER) | payer SELFPAY ==
[2018-04-21 14:26] VITALS: BP 148/92; PULSE 94; RESP 16; TEMP 98; O2SAT 97
--- NOTE | 2018-04-21 15:47 | ED PDOC ---
HPI: Psych/Substance Abuse Time Seen by Provider: 04/21/18 14:41 Chief Complaint (Nursing): Substance Abuse Chief Complaint (Provider): Substance Abuse History Per: Patient, EMS History/Exam Limitations: no limitations Onset/Duration Of Symptoms: Days Current Symptoms Are (Timing): Still Present Additional Complaint(s): 52 year old male, with a past medical history of polysubstance abuse, who was brought to the emergency department by EMS and [place] [employer] due to erratic behavior. Upon arrival to ED patient was screaming and jumping. Patient evaluated and states he has no medical complaints. He denies any head trauma, fall, chest pain, dizziness or other medical complaints. Of note, patient is well known to provider and ED staff for multiple visits secondary to substance abuse. PMD: None provided Past Medical History Reviewed: Historical Data, Nursing Documentation, Vital Signs Vital Signs: Last Vital Signs Temp 98.0 F 04/21/18 14:24 Pulse 94 H 04/21/18 14:24 Resp 16 04/21/18 14:24 BP 148/92 H 04/21/18 14:24 Pulse Ox 97 04/21/18 14:24 - Medical History PMH: Back Problems Denies: HIV, HTN, Chronic Kidney Disease, Seizures, Sexually Transmitted Disease - Surgical History Surgical History: Back Surgery (herniated disc), Hernia Repair - Family History Family History: States: CAD - Social History Current smoker - smoking cessation education provided: No Alcohol: None Drugs: Other (polysubstance abuse ) - Home Medications Home Medications: Ambulatory Orders Medication Instructions Recorded Cephalexin [Keflex] 500 mg PO TID #21 capsule 02/02/17 traMADol [Ultram] 50 mg PO TID PRN #15 tab 02/02/17 Fluticasone Nasal [Flonase] 1 actuation NS BID PRN #1 bottle 04/07/17 Pseudoephedrine HCl [Sudafed 120 mg PO Q12 PRN #10 tablet.er 04/07/17 12-Hour] Clotrimazole 1% Cream [Lotrimin 1%] 1 appl TOP BID #1 tube 07/07/17 Ibuprofen [Motrin] 600 mg PO QID PRN #30 tab 09/26/17 Sulfamethoxazole/Trimethoprim 1 tab PO BID #14 tab 09/26/17 [Bactrim DS 800 mg-160 mg] Ibuprofen [Motrin Tab] 800 mg PO TID PRN #12 tab 12/05/17 Sulfamethoxazole/Trimethoprim 1 tab PO BID #14 tab 12/05/17 [Bactrim DS 800 mg-160 mg] Azithromycin [Zithromax] 250 mg PO DAILY #6 tab 01/09/18 Benzonatate 200 mg PO TID PRN #20 capsule 01/09/18 - Allergies Allergies/Adverse Reactions: Allergies Allergy/AdvReac Type Severity Reaction Status Date / Time No Known Allergies Allergy Verified 04/21/18 14:23 Review of Systems ROS Statement: Except As Marked, All Systems Reviewed And Found Negative Cardiovascular: Negative for: Chest Pain Respiratory: Negative for: Shortness of Breath Neurological: Negative for: Dizziness Physical Exam - Reviewed Nursing Documentation Reviewed: Yes Vital Signs Reviewed: Yes - Physical Exam Appears: Positive for: Non-toxic, No Acute Distress Head Exam: Positive for: ATRAUMATIC, NORMAL INSPECTION, NORMOCEPHALIC Skin: Positive for: Normal Color, Warm, DRY Eye Exam: Positive for: Normal appearance Cardiovascular/Chest: Positive for: Regular Rate, Rhythm. Negative for: Murmur Respiratory: Positive for: Normal Breath Sounds. Negative for: Respiratory Distress Gastrointestinal/Abdominal: Positive for: Normal Exam, Soft. Negative for: Tenderness Neurologic/Psych: Positive for: Alert, Oriented, Gait (steady ). Negative for: Motor/Sensory Deficits, Other (slurred speech) - ECG O2 Sat by Pulse Oximetry: 97 (RA) Pulse Ox Interpretation: Normal Medical Decision Making Medical Decision Making: Time: 14:45 Plan: --Reevaluation 15:50 -Upon provider reevaluation patient is medically stable, and requires no further treatment in the ED at this time. Patient will be discharged home. There is agreement to discharge plan. ----- Scribe Attestation: Documented by Andreea Lundy, acting as a scribe for KO Mata Provider Scribe Attestation: All medical record entries made by the Scribe were at my direction and personally dictated by me. I have reviewed the chart and agree that the record accurately reflects my personal performance of the history, physical exam, medical decision making, and the department course for this patient. I have also personally directed, reviewed, and agree with the discharge instructions and disposition. Disposition - Clinical Impression Clinical Impression: Opiate abuse, continuous - Patient ED Disposition Is Patient to be Admitted: No - Disposition Disposition: Routine/Home Disposition Time: 15:50 Condition: STABLE Instructions: Drug Abuse and Drug Addiction (DC) Forms: [facility] (Zambian) Print Language: PUERTO RICAN
== END 2018-04-21 16:06 | disposition home or self-care (01) ==
LOC: H.ER 14:17
DX: F11.10 Opioid abuse, uncomplicated (principal)

== ENCOUNTER 2018-05-06 23:20 | Emergency (ER) | payer MEDICAID, OTHER ==
[2018-05-06 23:28] VITALS: BMI 20.9
[2018-05-06 23:30] VITALS: BP 137/68; PULSE 108; RESP 22; TEMP 98.5; O2SAT 94
--- NOTE | 2018-05-06 23:58 | ED PDOC ---
HPI: Psych/Substance Abuse Time Seen by Provider: 05/06/18 23:38 Chief Complaint (Nursing): Substance Abuse Chief Complaint (Provider): Substance Abuse ED Caveat: Intoxicated History/Exam Limitations: intoxication Additional Complaint(s): 52 year old male with no significant past medical history brought to the ED by EMS for substance abuse. Patient is known to ED for multiple visits related to substance abuse. Patient is agitated and uncooperative necessitating restrain due to high risk for self injury or fall. History is unobtainable due to clinical condition. PMD: None provided Past Medical History Reviewed: Historical Data, Nursing Documentation, Vital Signs Vital Signs: Last Vital Signs Temp 98.5 F 05/06/18 23:28 Pulse 108 H 05/06/18 23:28 Resp 22 05/06/18 23:28 BP 137/68 05/06/18 23:28 Pulse Ox 94 L 05/06/18 23:28 - Medical History PMH: Back Problems Denies: HIV, HTN, Chronic Kidney Disease, Seizures, Sexually Transmitted Disease - Surgical History Surgical History: Back Surgery (herniated disc), Hernia Repair - Family History Family History: States: CAD - Home Medications Home Medications: Ambulatory Orders Medication Instructions Recorded Cephalexin [Keflex] 500 mg PO TID #21 capsule 02/02/17 RX: traMADol [Ultram] 50 mg PO TID PRN #15 tab 02/02/17 Fluticasone Nasal [Flonase] 1 actuation NS BID PRN #1 bottle 04/07/17 Pseudoephedrine HCl [Sudafed 120 mg PO Q12 PRN #10 tablet.er 04/07/17 12-Hour] RX: Clotrimazole 1% Cream 1 appl TOP BID #1 tube 07/07/17 [Lotrimin 1%] Ibuprofen [Motrin] 600 mg PO QID PRN #30 tab 09/26/17 Sulfamethoxazole/Trimethoprim 1 tab PO BID #14 tab 09/26/17 [Bactrim DS 800 mg-160 mg] Ibuprofen [Motrin Tab] 800 mg PO TID PRN #12 tab 12/05/17 Sulfamethoxazole/Trimethoprim 1 tab PO BID #14 tab 12/05/17 [Bactrim DS 800 mg-160 mg] Azithromycin [Zithromax] 250 mg PO DAILY #6 tab 01/09/18 RX: Benzonatate 200 mg PO TID PRN #20 capsule 01/09/18 - Allergies Allergies/Adverse Reactions: Allergies Allergy/AdvReac Type Severity Reaction Status Date / Time No Known Allergies Allergy Verified 05/06/18 23:31 Review of Systems Review Of Systems: ROS cannot be obtained secondary to pt's inabilty to answer questions. Physical Exam - Reviewed Nursing Documentation Reviewed: Yes Vital Signs Reviewed: Yes - Physical Exam Appears: Positive for: Well, No Acute Distress Head Exam: Positive for: ATRAUMATIC, NORMOCEPHALIC Skin: Positive for: Normal Color, Warm, Dry Eye Exam: Positive for: Normal appearance, EOMI, PERRL Neck: Positive for: Normal, Painless ROM, Supple Cardiovascular/Chest: Positive for: Regular Rate, Rhythm. Negative for: Murmur Respiratory: Positive for: Normal Breath Sounds. Negative for: Respiratory Distress Gastrointestinal/Abdominal: Positive for: Normal Exam, Soft. Negative for: Tenderness Back: Positive for: Normal Inspection. Negative for: L CVA Tenderness, R CVA Tenderness Extremity: Positive for: Normal ROM. Negative for: Pedal Edema, Swelling - ECG O2 Sat by Pulse Oximetry: 94 (RA) Pulse Ox Interpretation: Abnormal - Critical Care Total Time (In Min): 30 Medical Decision Making Medical Decision Making: Time: 2032 Initial Impression: 52 years old male brought in for substance abuse. Patient extremely agitated secondary to substance abuse induced delirium, Haldol/Ativan and 4 point restraints ordered for patient and staff safety Initial Plan: --Alcohol serum --Drug screen --Ativan 2 mg IM --Haldol 5 mg IM --1:1 Observation 0602 Upon reevaluation, patient is awake and alert with steady gait and fluent speech ; requesting discharge in order to go to work. Patient is clinically sober and stable for discharge. Scribe Attestation: Documented by Candace Rossi, acting as a scribe for Luis Coates MD. Provider Scribe Attestation: All medical record entries made by the Scribe were at my direction and personally dictated by me. I have reviewed the chart and agree that the record accurately reflects my personal performance of the history, physical exam, medical decision making, and the department course for this patient. I have also personally directed, reviewed, and agree with the discharge instructions and disposition. Disposition - Clinical Impression Clinical Impression: Substance induced mood disorder - Patient ED Disposition Is Patient to be Admitted: No - Disposition Disposition: Routine/Home Disposition Time: 06:02 Condition: STABLE Instructions: Drug Abuse Treatment Forms: [employer] (Welsh)
== END 2018-05-07 06:40 | disposition home or self-care (01) ==
LOC: H.ER 23:20
DX: F19.94 Other psychoactive substance use, unspecified with psychoactive substance-induced mood disorder (principal)
CPT/HCPCS: 96372; 99283; J1630; J2060

== ENCOUNTER 2018-05-18 22:13 | Emergency (ER) | payer SELFPAY ==
[2018-05-18 22:14] VITALS: BMI 20.9
[2018-05-18 22:56] VITALS: BP 110/71; PULSE 86; RESP 20; TEMP 98.3; O2SAT 97
--- NOTE | 2018-05-19 15:18 | CARD ---
APPROVED REPORT Date of service: 05/18/2018 EKG Measurement Heart [id number] <Conclusion> Normal sinus rhythm Normal ECG
== END 2018-05-18 23:00 | disposition left against medical advice (07) ==
LOC: H.ER 22:13
DX: Z02.89 Encounter for other administrative examinations (principal)

== ENCOUNTER 2018-05-27 20:26 | Emergency (ER) | payer SELFPAY ==
[2018-05-27 20:27] VITALS: BMI 20.9
[2018-05-27 21:03] VITALS: BP 130/78; PULSE 89; RESP 18; TEMP 98; O2SAT 98
== END 2018-05-27 21:30 | disposition left against medical advice (07) ==
LOC: H.ER 20:26
DX: Z02.89 Encounter for other administrative examinations (principal)

== ENCOUNTER 2018-05-28 19:41 | Emergency (ER) | payer SELFPAY ==
[2018-05-28 19:41] VITALS: BMI 20.9
[2018-05-28 19:49] VITALS: BP 136/67; PULSE 86; RESP 16; TEMP 98.6; O2SAT 98
--- NOTE | 2018-05-28 21:22 | ED PDOC ---
HPI: Psych/Substance Abuse Time Seen by Provider: 05/28/18 20:08 Chief Complaint (Nursing): Substance Abuse Chief Complaint (Provider): Substance Abuse History Per: Patient History/Exam Limitations: no limitations Onset/Duration Of Symptoms: Hrs Current Symptoms Are (Timing): Still Present Additional Complaint(s): 53 y/o male with a known history of substance abuse brought in by Police and EMS for evaluation of substance abuse. Patient is unable to provide history due to intoxicated state and known substance abuse. Patient very agitated and disheveled. PMD: NO PROVIDER Past Medical History Reviewed: Historical Data, Nursing Documentation, Vital Signs Vital Signs: Last Vital Signs Temp 98.6 F 05/28/18 19:48 Pulse 86 05/28/18 19:48 Resp 16 05/28/18 19:48 BP 136/67 05/28/18 19:48 Pulse Ox 98 05/28/18 19:48 - Medical History PMH: Back Problems Denies: HIV, HTN, Chronic Kidney Disease, Seizures, Sexually Transmitted Disease - Surgical History Surgical History: Back Surgery (herniated disc), Hernia Repair - Family History Family History: States: CAD - Social History Drugs: Other (Heroine) - Home Medications Home Medications: Ambulatory Orders Medication Instructions Recorded Cephalexin [Keflex] 500 mg PO TID #21 capsule 02/02/17 traMADol [Ultram] 50 mg PO TID PRN #15 tab 02/02/17 Fluticasone Nasal [Flonase] 1 actuation NS BID PRN #1 bottle 04/07/17 Pseudoephedrine HCl [Sudafed 120 mg PO Q12 PRN #10 tablet.er 04/07/17 12-Hour] Clotrimazole 1% Cream [Lotrimin 1%] 1 appl TOP BID #1 tube 07/07/17 Ibuprofen [Motrin] 600 mg PO QID PRN #30 tab 09/26/17 Sulfamethoxazole/Trimethoprim 1 tab PO BID #14 tab 09/26/17 [Bactrim DS 800 mg-160 mg] Ibuprofen [Motrin Tab] 800 mg PO TID PRN #12 tab 12/05/17 Sulfamethoxazole/Trimethoprim 1 tab PO BID #14 tab 12/05/17 [Bactrim DS 800 mg-160 mg] Azithromycin [Zithromax] 250 mg PO DAILY #6 tab 01/09/18 Benzonatate 200 mg PO TID PRN #20 capsule 01/09/18 - Allergies Allergies/Adverse Reactions: Allergies Allergy/AdvReac Type Severity Reaction Status Date / Time No Known Allergies Allergy Verified 05/27/18 21:01 Review of Systems Review Of Systems: ROS cannot be obtained secondary to pt's inabilty to answer questions. Physical Exam - Reviewed Nursing Documentation Reviewed: Yes Vital Signs Reviewed: Yes - Physical Exam Appears: Positive for: No Acute Distress Skin: Positive for: Normal Color, Warm, Dry Extremity: Positive for: Normal ROM. Negative for: Deformity Neurological/Psych: Positive for: Awake, Alert, Gait (unsteady) - ECG O2 Sat by Pulse Oximetry: 98 (RA) Pulse Ox Interpretation: Normal Medical Decision Making Medical Decision Making: Time: 2008 Impression: Substance Abuse Most likely heroin, opioid abuse Plan: -- Due to substance abuse, delirium and agitation, patient was restrained after de-escalation was unsuccessful. -- Haldol 5 mg IM -- Restraints 00:00 Patient care endorsed to Dr Coates, pending clinical sobriety. Scribe Attestation: Documented by Isabel Bronson, acting as a scribe Sushant Morrell MD. Provider Scribe Attestation: All medical record entries made by the Scribe were at my direction and personally dictated by me. I have reviewed the chart and agree that the record accurately reflects my personal performance of the history, physical exam, medi [facility]ini decision making, and the department course for this patient. I have also personally directed, reviewed, and agree with the discharge instructions and disposition. Disposition - Clinical Impression Clinical Impression: Substance induced mood disorder - Patient ED Disposition Is Patient to be Admitted: Transfer of Care Counseled Patient/Family Regarding: Studies Performed, Diagnosis - Disposition Disposition: Transfer of Care Disposition Time: 00:00 Condition: STABLE Additional Instructions: DEJAN JOSEPH, thank you for letting us take care of you today. Your provider was Luis Coates MD and you were treated for POSS SUBSTANCE ABUSE. The emergency medical care you received today was directed at your acute symptoms. If you were prescribed any medication, please fill it and take as directed. It may take several days for your symptoms to resolve. Return to the Emergency Department if your symptoms worsen, do not improve, or if you have any other problems. Please contact your doctor or call one of the physicians/clinics you have been referred to that are listed on the Patient Visit Information form that is included in your discharge packet. Bring any paperwork you were given at discharge with you along with any medications you are taking to your follow up visit. Our treatment cannot replace ongoing medical care by a primary care provider outside of the emergency department. Thank you for allowing the [facility] team to be part of your care today. If you had an X-Ray or CT scan: A Radiologist will review the ED reading if any change in treatment is needed we will contact you. If you had a blood, urine, or wound culture: It will take several days for the results, if any change in treatment is needed we will contact you. If you had an STI test: It will take 48 hours for the results. Please call after 1 week if you have not heard back. Instructions: Drug Abuse and Drug Addiction (DC) Forms: [employer] (Kyrgyz) Patient Signed Over To: Luis Coates
--- NOTE | 2018-05-29 00:14 | ED PDOC ---
- ECG O2 Sat by Pulse Oximetry: 98 (RA) Pulse Ox Interpretation: Normal Medical Decision Making Medical Decision Making: Time:00:00 Patient care endorsed from Dr. Morrell to provider pending clinical sobriety. 05:27 Patient is clinically sober and stable for discharge. Diagnosis is substance abuse. Scribe Attestation: Documented by Maycol Parker, acting as a scribe forDr. Luis Coates MD Provider Scribe Attestation: All medical record entries made by the Scribe were at my direction and personally dictated by me. I have reviewed the chart and agree that the record accurately reflects my personal performance of the history, physical exam, medical decision making, and the department course for this patient. I have also personally directed, reviewed, and agree with the discharge instructions and disposition. Disposition - Clinical Impression Clinical Impression: Substance induced mood disorder - POA Present On Arrival: None - Disposition Disposition: Routine/Home Disposition Time: 05:27 Condition: IMPROVED Additional Instructions: DEJAN JOSEPH, thank you for letting us take care of you today. Your provider was Luis Coates MD and you were treated for POSS SUBSTANCE ABUSE. The emergency medical care you received today was directed at your acute symptoms. If you were prescribed any medication, please fill it and take as directed. It may take several days for your symptoms to resolve. Return to the Emergency Department if your symptoms worsen, do not improve, or if you have any other problems. Please contact your doctor or call one of the physicians/clinics you have been referred to that are listed on the Patient Visit Information form that is included in your discharge packet. Bring any paperwork you were given at discharge with you along with any medications you are taking to your follow up visit. Our treatment cannot replace ongoing medical care by a primary care carlita myers outside of the emergency department. Thank you for allowing the [facility] team to be part of your care today. If you had an X-Ray or CT scan: A Radiologist will review the ED reading if any change in treatment is needed we will contact you. If you had a blood, urine, or wound culture: It will take several days for the results, if any change in treatment is needed we will contact you. If you had an STI test: It will take 48 hours for the results. Please call after 1 week if you have not heard back. Instructions: Drug Abuse and Drug Addiction (DC) Forms: [employer] (Citizen Of [place])
== END 2018-05-29 06:26 | disposition home or self-care (01) ==
LOC: H.ER 19:41
DX: F19.94 Other psychoactive substance use, unspecified with psychoactive substance-induced mood disorder (principal)

== ENCOUNTER 2018-06-02 18:12 | Emergency (ER) | payer SELFPAY ==
[2018-06-02 18:13] VITALS: BMI 20.9
[2018-06-02 18:29] VITALS: BP 131/76; PULSE 90; RESP 20; O2SAT 96
== END 2018-06-02 19:15 | disposition left against medical advice (07) ==
LOC: H.ER 18:12
DX: Z02.89 Encounter for other administrative examinations (principal)

== ENCOUNTER 2018-06-04 18:09 | Emergency (ER) | payer SELFPAY ==
[2018-06-04 18:09] VITALS: BMI 20.9
--- NOTE | 2018-06-04 18:25 | ED PDOC ---
HPI: Psych/Substance Abuse Time Seen by Provider: 06/04/18 18:13 Chief Complaint (Nursing): Psychiatric Evaluation Chief Complaint (Provider): Psychiatric Evaluation ED Caveat: Uncooperative (Cannot get close, he is grabbing staff) History Per: Other (unable to provide history ) History/Exam Limitations: no limitations Additional Complaint(s): 53 y/o male with a known history of substance abuse brought in by Police and EMS for evaluation of substance abuse. Patient is unable to provide history due to intoxicated state and known substance abuse. Patient very agitated,disheveled and is screaming for juice. PMD: NO PROVIDER Past Medical History Reviewed: Historical Data, Nursing Documentation, Vital Signs JOSH Report Viewed: Yes - Medical History PMH: Back Problems Denies: HIV, HTN, Chronic Kidney Disease, Seizures, Sexually Transmitted Disease - Surgical History Surgical History: Back Surgery (herniated disc), Hernia Repair - Family History Family History: States: CAD - Home Medications Home Medications: Ambulatory Orders Medication Instructions Recorded Cephalexin [Keflex] 500 mg PO TID #21 capsule 02/02/17 traMADol [Ultram] 50 mg PO TID PRN #15 tab 02/02/17 Fluticasone Nasal [Flonase] 1 actuation NS BID PRN #1 bottle 04/07/17 Pseudoephedrine HCl [Sudafed 120 mg PO Q12 PRN #10 tablet.er 04/07/17 12-Hour] Clotrimazole 1% Cream [Lotrimin 1%] 1 appl TOP BID #1 tube 07/07/17 Ibuprofen [Motrin] 600 mg PO QID PRN #30 tab 09/26/17 Sulfamethoxazole/Trimethoprim 1 tab PO BID #14 tab 09/26/17 [Bactrim DS 800 mg-160 mg] Ibuprofen [Motrin Tab] 800 mg PO TID PRN #12 tab 12/05/17 Sulfamethoxazole/Trimethoprim 1 tab PO BID #14 tab 12/05/17 [Bactrim DS 800 mg-160 mg] Azithromycin [Zithromax] 250 mg PO DAILY #6 tab 01/09/18 Benzonatate 200 mg PO TID PRN #20 capsule 01/09/18 - Allergies Allergies/Adverse Reactions: Allergies Allergy/AdvReac Type Severity Reaction Status Date / Time No Known Allergies Allergy Verified 06/04/18 18:16 Review of Systems Review Of Systems: ROS cannot be obtained secondary to pt's inabilty to answer questions. Physical Exam - Reviewed Nursing Documentation Reviewed: Yes Vital Signs Reviewed: Yes - Physical Exam Appears: Positive for: Uncomfortable (appears disheveled ) Head Exam: Positive for: ATRAUMATIC, NORMAL INSPECTION, NORMOCEPHALIC Skin: Positive for: Normal Color, Warm, DRY Eye Exam: Positive for: EOMI, Normal appearance, PERRL Neck: Positive for: Normal, Painless ROM Cardiovascular/Chest: Positive for: Regular Rate, Rhythm Respiratory: Positive for: CNT, Normal Breath Sounds Extremity: Positive for: Normal ROM (upper and lower) Neurological/Psych: Positive for: Awake, Gait (steady ), Other (appears intoxicated ) Comments: Patient is uncooperative, cannot get close to him as he is grabbing staff. No signs of trauma Medical Decision Making Medical Decision Makin:13 MDM: Exam limited due to uncooperativeness. Patient will be given juice as requested. Will attempt to have further discussion with patient. 19:06 Patient is ambulatory, tolerating PO and stable for discharge home. Scribe Attestation: Documented by Marc Dumas, acting as a scribe for Heaven Chaparro MD Provider Scribe Attestation: All medical record entries made by the Scribe were at my direction and personally dictated by me. I have reviewed the chart and agree that the record accurately reflects my personal performance of the history, physical exam, medical decision making, and the department course for this patient. I have also personally directed, reviewed, and agree with the discharge instructions and disposition. Disposition - Clinical Impression Clinical Impression: Alcohol dependence, Alcohol abuse with intoxication, Agitation - Disposition Referrals: Alcoholics Anonymous [Outside] Disposition: Routine/Home Disposition Time: 19:06 Condition: STABLE Instructions: Alcohol Use - When Is Drinking a Problem? Forms: [employer] (Georgian) Print Language: JAPANESE
[2018-06-04 18:52] VITALS: BP 106/57; PULSE 61; RESP 18; TEMP 97.6; O2SAT 96
== END 2018-06-04 19:17 | disposition home or self-care (01) ==
LOC: H.ER 18:09
DX: F10.129 Alcohol abuse with intoxication, unspecified (principal); R45.1 Restlessness and agitation

== ENCOUNTER 2018-06-05 19:20 | Emergency (ER) | payer MEDICAID ==
[2018-06-05 19:21] VITALS: BMI 20.9
--- NOTE | 2018-06-05 20:00 | ED PDOC ---
HPI: Psych/Substance Abuse Time Seen by Provider: 06/05/18 19:24 Chief Complaint (Nursing): Substance Abuse Chief Complaint (Provider): Substance Abuse History Per: Patient History/Exam Limitations: no limitations Onset/Duration Of Symptoms: Unknown Current Symptoms Are (Timing): Still Present Additional Complaint(s): 53 y/o male with a known history of substance abuse brought in by BLS for evaluation of possible substance abuse. As per BLS, patient was found sleeping on the sidewalk. As per triage note, patient arrived to the ED sleeping and difficult to arouse. Patient known to ED staff and provider for erratic behavior and heroin use. PMD: no provider Past Medical History Reviewed: Historical Data, Nursing Documentation, Vital Signs Vital Signs: Last Vital Signs Temp 97.0 F L 06/05/18 19:21 Pulse 86 06/05/18 19:21 Resp 8 L 06/05/18 19:21 BP 126/72 06/05/18 19:30 Pulse Ox 88 L 06/05/18 19:21 - Medical History PMH: Back Problems Denies: HIV, HTN, Chronic Kidney Disease, Seizures, Sexually Transmitted Disease - Surgical History Surgical History: Back Surgery (herniated disc), Hernia Repair - Family History Family History: States: CAD - Social History Drugs: Other (heroin) - Home Medications Home Medications: Ambulatory Orders Medication Instructions Recorded Cephalexin [Keflex] 500 mg PO TID #21 capsule 02/02/17 traMADol [Ultram] 50 mg PO TID PRN #15 tab 02/02/17 Fluticasone Nasal [Flonase] 1 actuation NS BID PRN #1 bottle 04/07/17 Pseudoephedrine HCl [Sudafed 120 mg PO Q12 PRN #10 tablet.er 04/07/17 12-Hour] Clotrimazole 1% Cream [Lotrimin 1%] 1 appl TOP BID #1 tube 07/07/17 Ibuprofen [Motrin] 600 mg PO QID PRN #30 tab 09/26/17 Sulfamethoxazole/Trimethoprim 1 tab PO BID #14 tab 09/26/17 [Bactrim DS 800 mg-160 mg] Ibuprofen [Motrin Tab] 800 mg PO TID PRN #12 tab 12/05/17 Sulfamethoxazole/Trimethoprim 1 tab PO BID #14 tab 12/05/17 [Bactrim DS 800 mg-160 mg] Azithromycin [Zithromax] 250 mg PO DAILY #6 tab 01/09/18 Benzonatate 200 mg PO TID PRN #20 capsule 01/09/18 - Allergies Allergies/Adverse Reactions: Allergies Allergy/AdvReac Type Severity Reaction Status Date / Time No Known Allergies Allergy Verified 06/05/18 19:21 Review of Systems ROS Statement: Except As Marked, All Systems Reviewed And Found Negative Psych: Positive for: Other (possible substance abuse) Physical Exam - Reviewed Nursing Documentation Reviewed: Yes Vital Signs Reviewed: Yes - Physical Exam Appears: Positive for: No Acute Distress Head Exam: Positive for: ATRAUMATIC Skin: Positive for: Normal Color, Warm, Dry Eye Exam: Positive for: Other (Pupils pinpoint) Neck: Positive for: Normal, Painless ROM Cardiovascular/Chest: Negative for: Bradycardia, Tachycardia Respiratory: Positive for: Normal Breath Sounds. Negative for: Respiratory Distress Gastrointestinal/Abdominal: Positive for: Normal Exam, Soft. Negative for: Tenderness Extremity: Positive for: Normal ROM. Negative for: Deformity Neurological/Psych: Negative for: Awake (sleeping but arousable to tactile stimulus) - ECG O2 Sat by Pulse Oximetry: 88 (RA) Pulse Ox Interpretation: Normal Medical Decision Making Medical Decision Making: Time: 2001 Impression: 53 y/o male with opioid abuse Plan: -- Patient placed on monitor. -- No indication for narcan needed at present time. Time: 2099 -- On re-evaluation, patient is awake and alert with normal vital signs. Patient is stable for discharge home. Scribe Attestation: Documented by Isabel Bronosn, acting as a scribe Gerhard Coates MD. Provider Scribe Attestation: All medical record entries made by the Scribe were at my direction and personally dictated by me. I have reviewed the chart and agree that the record accurately reflects my personal performance of the history, physical exam, m edical decision making, and the department course for this patient. I have also personally directed, reviewed, and agree with the discharge instructions and disposition. Disposition - Clinical Impression Clinical Impression: Substance abuse, Opiate abuse, continuous - Patient ED Disposition Is Patient to be Admitted: No Counseled Patient/Family Regarding: Studies Performed, Diagnosis - Disposition Disposition: Routine/Home Disposition Time: 21:23 Condition: STABLE Instructions: Opioid Use Disorder Forms: [employer] (Kiswahili)
[2018-06-05 21:23] VITALS: O2SAT 88
[2018-06-05 21:24] VITALS: BP 131/68; PULSE 73; RESP 17; TEMP 97.9
== END 2018-06-05 21:24 | disposition home or self-care (01) ==
LOC: H.ER 19:20
DX: F11.10 Opioid abuse, uncomplicated (principal); Z82.49 Family history of ischemic heart disease and other diseases of the circulatory system; Y92.480 Sidewalk as the place of occurrence of the external cause

== ENCOUNTER 2018-06-17 16:17 | Emergency (ER) | payer SELFPAY ==
[2018-06-17 16:17] VITALS: BMI 20.9
[2018-06-17 17:59] VITALS: BP 145/88; PULSE 90; RESP 20; TEMP 98; O2SAT 99
--- NOTE | 2018-06-17 18:06 | ED PDOC ---
HPI: Psych/Substance Abuse Chief Complaint (Provider): Substance Abuse History Per: Patient History/Exam Limitations: no limitations Additional Complaint(s): 53 year old male with a history of polysubstance abuse and who is well known to the ED was brought into the ED via EMS after being found on the street screaming. Patient admits to snorting one bag of heroin today and states "it is government stuff". Otherwise, denies cocaine use, suicidal ideation, homicidal ideation, dizziness or chest pain. Currently, he just states he is thirsty. <Alka Blue - Last Filed: 06/18/18 00:13> <Reyna Enrique - Last Filed: 06/20/18 11:51> Time Seen by Provider: 06/17/18 16:46 Chief Complaint (Nursing): Substance Abuse Past Medical History Reviewed: Historical Data, Nursing Documentation, Vital Signs Vital Signs: Last Vital Signs Temp 98.0 F 06/17/18 17:58 Pulse 90 06/17/18 17:58 Resp 20 06/17/18 17:58 BP 145/88 06/17/18 17:58 Pulse Ox 99 06/17/18 17:59 - Medical History PMH: Back Problems Denies: HIV, HTN, Chronic Kidney Disease, Seizures, Sexually Transmitted Disease - Surgical History Surgical History: Back Surgery (herniated disc), Hernia Repair - Family History Family History: States: CAD <Alka Blue - Last Filed: 06/18/18 00:13> Vital Signs: Last Vital Signs Temp 98.0 F 06/17/18 17:58 Pulse 90 06/17/18 17:58 Resp 20 06/17/18 17:58 BP 145/88 06/17/18 17:58 Pulse Ox 99 06/18/18 00:14 <Reyna Enrique - Last Filed: 06/20/18 11:51> - Home Medications Home Medications: Ambulatory Orders Medication Instructions Recorded Cephalexin [Keflex] 500 mg PO TID #21 capsule 02/02/17 traMADol [Ultram] 50 mg PO TID PRN #15 tab 02/02/17 Fluticasone Nasal [Flonase] 1 actuation NS BID PRN #1 bottle 04/07/17 Pseudoephedrine HCl [Sudafed 120 mg PO Q12 PRN #10 tablet.er 04/07/17 12-Hour] Clotrimazole 1% Cream [Lotrimin 1%] 1 appl TOP BID #1 tube 07/07/17 Ibuprofen [Motrin] 600 mg PO QID PRN #30 tab 09/26/17 Sulfamethoxazole/Trimethoprim 1 tab PO BID #14 tab 09/26/17 [Bactrim DS 800 mg-160 mg] Ibuprofen [Motrin Tab] 800 mg PO TID PRN #12 tab 12/05/17 Sulfamethoxazole/Trimethoprim 1 tab PO BID #14 tab 12/05/17 [Bactrim DS 800 mg-160 mg] Azithromycin [Zithromax] 250 mg PO DAILY #6 tab 01/09/18 Benzonatate 200 mg PO TID PRN #20 capsule 01/09/18 - Allergies Allergies/Adverse Reactions: Allergies Allergy/AdvReac Type Severity Reaction Status Date / Time No Known Allergies Allergy Verified 06/17/18 16:22 Review of Systems ROS Statement: Except As Marked, All Systems Reviewed And Found Negative Cardiovascular: Negative for: Chest Pain Neurological: Negative for: Dizziness Psych: Negative for: Suicidal ideation, Other (homicidal ideation ) <Alka Blue - Last Filed: 06/18/18 00:13> Physical Exam - Reviewed Nursing Documentation Reviewed: Yes Vital Signs Reviewed: Yes - Physical Exam Appears: Positive for: Non-toxic Head Exam: Positive for: ATRAUMATIC Skin: Positive for: Normal Color Eye Exam: Positive for: Conjunctival injection (b/l), Other (pupils are pinpoint bilaterally) Neck: Positive for: Supple Cardiovascular/Chest: Positive for: Regular Rate, Rhythm. Negative for: Murmur Respiratory: Positive for: Normal Breath Sounds. Negative for: Respiratory Distress Neurological/Psych: Positive for: Awake, Alert, Oriented (x3), Gait (steady), Other (speech coherent ) <Alka Blue - Last Filed: 06/18/18 00:13> - ECG O2 Sat by Pulse Oximetry: 99 (RA) Pulse Ox Interpretation: Normal <Alka Blue Last Filed: 06/18/18 00:13> Medical Decision Making Medical Decision Making: Upon provider evaluation patient is medically stable, and requires no further treatment in the ED at this time. Patient will be discharged. Counseling was p rovided and all questions were answered regarding diagnosis. There is agreement to discharge plan. Return if symptoms persist or worsen. Scribe Attestation: Documented by Maurisio Espinoza, acting as a scribe for Alka Blue PA-C. Provider Scribe Attestation: All medical record entries made by the Scribe were at my direction and personally dictated by me. I have reviewed the chart and agree that the record accurately reflects my personal performance of the history, physical exam, medical decision making, and the department course for this patient. I have also personally directed, reviewed, and agree with the discharge instructions and disposition. <Alka Blue - Last Filed: 06/18/18 00:13> Disposition - Patient ED Disposition Is Patient to be Admitted: No - Disposition Disposition: Routine/Home Disposition Time: 17:52 <Alka Blue - Last Filed: 06/18/18 00:13> <Reyna Enrique - Last Filed: 06/20/18 11:51> - Clinical Impression Clinical Impression: Opiate abuse, continuous - Disposition Condition: STABLE Additional Instructions: You are advised to stop using drugs and to seek help. Instructions: Drug Abuse and Drug Addiction (DC) Forms: [employer] (Korean) Print Language: MOLDOVAN - PA / OUT OF SCHOOL HOURS CARE WORKER / Resident Statement MD/DO has examined the patient and agrees with the treatment plan. (53yo man w h/o heroin abuse presenting with his typical symptoms during heroin intoxication. He is very animated but otherwise not demonstrating risk of acute harm to himself or others. Detox resources given. Stable for discharge.) <Reyna Enrique - Last Filed: 06/20/18 11:51>
== END 2018-06-17 17:59 | disposition home or self-care (01) ==
LOC: H.ER 16:17
DX: F11.10 Opioid abuse, uncomplicated (principal)

== ENCOUNTER 2018-06-21 15:32 | Emergency (ER) | payer SELFPAY ==
[2018-06-21 15:33] VITALS: BMI 20.9
[2018-06-21] MEDS ORDERED: Bacitracin 500 Units/gm Oint Foilpak UD TOP STA (15:49)
--- NOTE | 2018-06-21 16:31 | ED PDOC ---
HPI: Psych/Substance Abuse Time Seen by Provider: 06/21/18 15:36 Chief Complaint (Nursing): Substance Abuse Chief Complaint (Provider): Evaluation ED Caveat: Acuity of Condition History Per: Patient History/Exam Limitations: clinical condition Additional History Per: EMS Additional Complaint(s): 53 year old male presents to the ED via EMS and escorted by PD for evaluation. He is well known to ED staff secondary to frequent visits and has a history of heroin abuse. He admits to doing heroin earlier today. Police was called to the scene as patient was acting bizarre on the street, chasing people and attempting to rub his blood on them/touch them. When patient arrived to the ED, he was handcuffed and extremely hyperactive and he could not be redirected. Currently, patient is able to provide limited history and denies complaints at this time except states the handcuffs are too tight. Patient is not in custody but EMS needed assistance in transporting patient given clinical state. PMD: no family provider Past Medical History Reviewed: Historical Data, Nursing Documentation, Vital Signs Vital Signs: Last Vital Signs Temp 98.4 F 06/21/18 15:37 Pulse 94 H 06/21/18 15:37 Resp 16 06/21/18 15:37 BP 144/68 06/21/18 15:37 Pulse Ox 97 06/21/18 15:37 - Medical History PMH: Back Problems - Surgical History Surgical History: Back Surgery (herniated disc), Hernia Repair - Family History Family History: States: CAD - Social History Alcohol: Social Drugs: Other (heroin abuse) - Home Medications Home Medications: Ambulatory Orders Medication Instructions Recorded Cephalexin [Keflex] 500 mg PO TID #21 capsule 02/02/17 traMADol [Ultram] 50 mg PO TID PRN #15 tab 02/02/17 Fluticasone Nasal [Flonase] 1 actuation NS BID PRN #1 bottle 04/07/17 Pseudoephedrine HCl [Sudafed 120 mg PO Q12 PRN #10 tablet.er 04/07/17 12-Hour] Clotrimazole 1% Cream [Lotrimin 1%] 1 appl TOP BID #1 tube 07/07/17 Ibuprofen [Motrin] 600 mg PO QID PRN #30 tab 09/26/17 Sulfamethoxazole/Trimethoprim 1 tab PO BID #14 tab 09/26/17 [Bactrim DS 800 mg-160 mg] Ibuprofen [Motrin Tab] 800 mg PO TID PRN #12 tab 12/05/17 Sulfamethoxazole/Trimethoprim 1 tab PO BID #14 tab 12/05/17 [Bactrim DS 800 mg-160 mg] Azithromycin [Zithromax] 250 mg PO DAILY #6 tab 01/09/18 Benzonatate 200 mg PO TID PRN #20 capsule 01/09/18 - Allergies Allergies/Adverse Reactions: Allergies Allergy/AdvReac Type Severity Reaction Status Date / Time No Known Allergies Allergy Verified 06/21/18 15:37 Review of Systems Review Of Systems: ROS cannot be obtained secondary to pt's inabilty to answer questions. Physical Exam - Reviewed Nursing Documentation Reviewed: Yes Vital Signs Reviewed: Yes - Physical Exam Comments: GENERAL APPEARANCE: Patient is awake, not oriented, appears under the influence; no acute distress. SKIN: Warm, dry; (-) cyanosis HEAD: (-) scalp swelling, (-) scalp tenderness. EYES: (+) pupils pinpoint ENMT: Mucous membranes moist. Airway patent: (-) stridor. NECK: Supple, FROM HEART AND CARDIOVASCULAR: (-) irregularity CHEST AND RESPIRATORY: (-) rales, (-) rhonchi, (-) wheezes; breath sounds equal. Respirations even and nonlabored. ABDOMEN: Soft, (-) distention, (-) tenderness, (-) guarding. EXTREMITIES: Multiple superficial abrasions to knees and ventral lower legs with minimal bleeding (-) deformity, (-) edema. NEURO AND PSYCH: Under the influence and patient demonstrating signs of delirium. Patient does not answer questions appropriately. Patient is not redirectable. (-) facial asymmetry. - ECG O2 Sat by Pulse Oximetry: 97 (RA) Pulse Ox Interpretation: Normal Medical Decision Making Medical Decision Making: Time: 1545 Impression: substance abuse, EDP Plan: Ativan 2mg IM Bacitracin bandages 1:1 Observation Immediately upon arrival, for the safety of the patient and staff, patient removed from handcuffs and placed in 4 points restraints and treated with Ativan IM. Given patient is in acute delirium, not redirectable with verbal de-escalation, he is a fall and safety risk. Patient will be monitored closely to remove restraints. PD remains at bedside. 1640 Patient is sleeping comfortably, no distress noted. 4 points restraints removed and 1:1 observation discontinued. 1734 Patient remains asleep in ED. No distress noted. Vitals stable. 1914 Patient remains asleep in ED. No distress noted. 2009 Patient now awake, alert, oriented x3. Patient ambulatory in ED with a steady, unassisted gait. On re-evaluation, patient offers no complaints. Vitals stable. Lab/Diagnostic results d/w the patient in great detail. Diagnosis of heroin abuse d/w the patient. Patient was observed in the ED for 4+ hours with no evidence of neurological deterioration. Based on history, exam and diagnostic results, plan will be for outpatient follow up with clinic. Patient instructed to follow-up with pmd / referral provided / the clinic in 1- 2 days without fail. Return to the emergency room at any time for any new or worsening symptoms. Patient states he fully agrees with and understands discharge instructions. States that he agrees with the plan and disposition. Verbalized and repeated discharge instructions and plan. I have given the patient opportunity to ask any additional questions. Scribe Attestation: Documented by aMurisio Espinoza, acting as a scribe for Heaven Camacho PA-C. Provider Scribe Attestation: All medical record entries made by the Scribe were at my direction and personally dictated by me. I have reviewed the chart and agree that the record accurately reflects my personal performance of the history, physical exam, medical decision making, and the department course for this patient. I have also personally directed, reviewed, and agree with the discharge instructions and disposition. Disposition - Clinical Impression Clinical Impression: Opiate abuse, continuous - Patient ED Disposition Is Patient to be Admitted: No Counseled Patient/Family Regarding: Studies Performed, Diagnosis, Need For Followup - Disposition Referrals: [facility] [Outside] Disposition: Routine/Home Disposition Time: 20:10 Condition: STABLE Additional Instructions: The emergency medical care you received today was directed at your acute symptoms. If you were prescribed any medication, please fill it and take as directed. It may take several days for your symptoms to resolve. Return to the Emergency Department if your symptoms worsen, do not improve, or if you have any other problems. Please contact your doctor in 2 days for re-evaluation and follow up / or call one of the physicians/clinics you have been referred to that are listed on the Patient Visit Information form that is included in your discharge packet. Bring any paperwork you were given at discharge with you along with any medications you are taking to your follow up visit. Our treatment cannot replace ongoing medical care by a primary care provider (PCP) outside of the emergency de partment. Instructions: Drug Abuse and Drug Addiction (DC), Drug Abuse Treatment, Opioid Use Disorder Forms: [facility] (Latvian) Print Language: TAJIK - POA Present On Arrival: None
[2018-06-21 21:12] VITALS: BP 122/80; PULSE 89; RESP 18; TEMP 98
[2018-06-21 22:22] VITALS: O2SAT 97
== END 2018-06-21 21:11 | disposition home or self-care (01) ==
LOC: H.ER 15:32
DX: F11.20 Opioid dependence, uncomplicated (principal)
CPT/HCPCS: 96372; 99284; J2060

== ENCOUNTER 2018-06-23 20:29 | Emergency (ER) | payer SELFPAY ==
[2018-06-23 20:30] VITALS: BMI 20.9
[2018-06-23 20:35] VITALS: BP 138/119; PULSE 86; RESP 19; O2SAT 97
--- NOTE | 2018-06-23 22:26 | ED PDOC ---
HPI: Psych/Substance Abuse Time Seen by Provider: 06/23/18 20:49 Chief Complaint (Nursing): Substance Abuse History Per: Patient, EMS Additional Complaint(s): Pt. brought in by EMS as pt. was "throwing" objects into a building and acting bizarre. Pt. is well known to provider. Offers no complaints. Past Medical History Reviewed: Historical Data, Nursing Documentation, Vital Signs Vital Signs: Last Vital Signs Temp Pulse 86 06/23/18 20:32 Resp 19 06/23/18 20:32 BP 138/119 H 06/23/18 20:32 Pulse Ox 97 06/23/18 20:32 - Medical History PMH: Back Problems Denies: HIV, HTN, Chronic Kidney Disease, Seizures, Sexually Transmitted Disease - Surgical History Surgical History: Back Surgery (herniated disc), Hernia Repair - Family History Family History: States: CAD - Home Medications Home Medications: Ambulatory Orders Medication Instructions Recorded Cephalexin [Keflex] 500 mg PO TID #21 capsule 02/02/17 traMADol [Ultram] 50 mg PO TID PRN #15 tab 02/02/17 Fluticasone Nasal [Flonase] 1 actuation NS BID PRN #1 bottle 04/07/17 Pseudoephedrine HCl [Sudafed 120 mg PO Q12 PRN #10 tablet.er 04/07/17 12-Hour] Clotrimazole 1% Cream [Lotrimin 1%] 1 appl TOP BID #1 tube 07/07/17 Ibuprofen [Motrin] 600 mg PO QID PRN #30 tab 09/26/17 Sulfamethoxazole/Trimethoprim 1 tab PO BID #14 tab 09/26/17 [Bactrim DS 800 mg-160 mg] Ibuprofen [Motrin Tab] 800 mg PO TID PRN #12 tab 12/05/17 Sulfamethoxazole/Trimethoprim 1 tab PO BID #14 tab 12/05/17 [Bactrim DS 800 mg-160 mg] Azithromycin [Zithromax] 250 mg PO DAILY #6 tab 01/09/18 Benzonatate 200 mg PO TID PRN #20 capsule 01/09/18 - Allergies Allergies/Adverse Reactions: Allergies Allergy/AdvReac Type Severity Reaction Status Date / Time No Known Allergies Allergy Verified 06/21/18 15:37 Review of Systems ROS Statement: Except As Marked, All Systems Reviewed And Found Negative Physical Exam - Physical Exam Appears: Positive for: Well, Non-toxic, No Acute Distress Head Exam: Positive for: ATRAUMATIC, NORMAL INSPECTION, NORMOCEPHALIC Skin: Positive for: Normal Color, Warm. Negative for: Rash Eye Exam: Positive for: Normal appearance Neck: Positive for: Normal Cardiovascular/Chest: Positive for: Regular Rate, Rhythm Respiratory: Positive for: Normal Breath Sounds Gastrointestinal/Abdominal: Positive for: Soft. Negative for: Tenderness Neurological/Psych: Positive for: Awake, Alert, Mood/Affect (hyperactive but is friend and easily consoled), Gait (steady, unassisted) - ECG O2 Sat by Pulse Oximetry: 97 - Progress ED Course And Treament: Pt. left ED prior to repeat BP. Disposition - Clinical Impression Clinical Impression: Substance abuse - Patient ED Disposition Is Patient to be Admitted: No - Disposition Disposition: Left W/O Treatment Disposition Time: 21:30 Condition: UNKNOWN Forms: [employer] [facility] (Iranian)
== END 2018-06-23 21:30 | disposition left against medical advice (07) ==
LOC: H.ER 20:29
DX: F19.10 Other psychoactive substance abuse, uncomplicated (principal)

== ENCOUNTER 2018-07-02 19:03 | Emergency (ER) | payer SELFPAY ==
[2018-07-02 19:03] VITALS: BMI 20.9
[2018-07-02 19:11] VITALS: PULSE 68; RESP 19; TEMP 97.4; O2SAT 98
--- NOTE | 2018-07-02 20:28 | ED PDOC ---
HPI: Psych/Substance Abuse Time Seen by Provider: 07/02/18 19:15 Chief Complaint (Nursing): Substance Abuse Chief Complaint (Provider): Substance Abuse ED Caveat: Intoxicated History Per: Patient, EMS History/Exam Limitations: intoxication Onset/Duration Of Symptoms: Mins Current Symptoms Are (Timing): Still Present Additional Complaint(s): 53 year old male, well known to the ED, presents via EMS for bizarre behavior on the streets. Patient is a known heroine user and a poor historian. Patient was initially yelling and screaming but was easily consolable and resting now. PMD: none Past Medical History Reviewed: Historical Data, Nursing Documentation, Vital Signs Vital Signs: Last Vital Signs Temp 97.4 F L 07/02/18 19:09 Pulse 68 07/02/18 19:09 Resp 19 07/02/18 19:09 BP Pulse Ox 98 07/02/18 19:09 - Medical History PMH: Back Problems Denies: HIV, HTN, Chronic Kidney Disease, Seizures, Sexually Transmitted Disease - Surgical History Surgical History: Back Surgery (herniated disc), Hernia Repair - Family History Family History: States: CAD - Home Medications Home Medications: Ambulatory Orders Medication Instructions Recorded Cephalexin [Keflex] 500 mg PO TID #21 capsule 02/02/17 traMADol [Ultram] 50 mg PO TID PRN #15 tab 02/02/17 Fluticasone Nasal [Flonase] 1 actuation NS BID PRN #1 bottle 04/07/17 Pseudoephedrine HCl [Sudafed 120 mg PO Q12 PRN #10 tablet.er 04/07/17 12-Hour] Clotrimazole 1% Cream [Lotrimin 1%] 1 appl TOP BID #1 tube 07/07/17 Ibuprofen [Motrin] 600 mg PO QID PRN #30 tab 09/26/17 Sulfamethoxazole/Trimethoprim 1 tab PO BID #14 tab 09/26/17 [Bactrim DS 800 mg-160 mg] Ibuprofen [Motrin Tab] 800 mg PO TID PRN #12 tab 12/05/17 Sulfamethoxazole/Trimethoprim 1 tab PO BID #14 tab 12/05/17 [Bactrim DS 800 mg-160 mg] Azithromycin [Zithromax] 250 mg PO DAILY #6 tab 01/09/18 Benzonatate 200 mg PO TID PRN #20 capsule 01/09/18 - Allergies Allergies/Adverse Reactions: Allergies Allergy/AdvReac Type Severity Reaction Status Date / Time No Known Allergies Allergy Verified 07/02/18 19:11 Review of Systems Review Of Systems: ROS cannot be obtained secondary to pt's inabilty to answer questions. Physical Exam - Reviewed Nursing Documentation Reviewed: Yes Vital Signs Reviewed: Yes - Physical Exam Comments: GENERAL APPEARANCE: Patient is awake, alert, oriented x 3, in no acute distress. SKIN: Warm, dry; (-) cyanosis HEAD: (-) scalp swelling, (-) scalp tenderness. EYES: (-) conjunctival pallor, (-) scleral icterus, (-) nystagmus. ENMT: Mucous membranes moist. Airway patent: (-) stridor. NECK: (-) tenderness, (-) stiffness, (-) lymphadenopathy. HEART AND CARDIOVASCULAR: (-) irregularity; (-) murmur, (-) gallop. CHEST AND RESPIRATORY: (-) rales, (-) rhonchi, (-) wheezes; breath sounds equal. ABDOMEN: Soft, (-) distention, (-) tenderness, (-) guarding. NEURO AND PSYCH: Mental status as above. Agitated initially but sleeping now. Patient is easily arousable to verbal stimuli. 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 Pupils equal and reactive; EOMI; (-) facial asymmetry; tongue and uvula midline. - ECG O2 Sat by Pulse Oximetry: 98 (RA) Pulse Ox Interpretation: Normal Medical Decision Making Medical Decision Making: Initial Impression: Intoxication Initial Plan: --Observe --Pending sobriety 21:10 pt is ambulating with a steady gait, using the restroom with no problems, awake and alert, pt is stable for dc Pt left prior to getting discharge papers Scribe Attestation: Documented by Tobi Junior acting as a scribe for Jacobo HA. Provider Scribe Attestation: All medical record entries made by the Scribe were at my direction and personally dictated by me. I have reviewed the chart and agree that the record accurately reflects my personal performance of the history, physical exam, medical decision making, and the department course for this patient. I have also personally directed, reviewed, and agree with the discharge instructions and disposition. Disposition - Clinical Impression Clinical Impression: Polysubstance abuse - Patient ED Disposition Is Patient to be Admitted: No Counseled Patient/Family Regarding: Studies Performed, Diagnosis, Need For Followup - Disposition Referrals: your, doctor [Other] Disposition: Routine/Home Disposition Time: 21:20 Condition: STABLE Additional Instructions: Thank you for letting us take care of you today. The emergency medical care you received today was directed at your acute symptoms. If you were prescribed any medication, please fill it and take as directed. It may take several days for your symptoms to resolve. Return to the Emergency Department if your symptoms worsen, do not improve, or if you have any other problems. Please contact your doctor in 2 days for re-evaluation and follow up / or call one of the physicians/clinics you have been referred to that are listed on the Patient Visit Information form that is included in your discharge packet. Bring any paperwork you were given at discharge with you along with any medications you are taking to your follow up visit. Our treatment cannot replace ongoing medical care by a primary care provider (PCP) outside of the emergency department. Instructions: Drug Abuse and Drug Addiction (DC) Print Language: FAROESE - POA Present On Arrival: None
== END 2018-07-02 21:18 | disposition home or self-care (01) ==
LOC: H.ER 19:03
DX: F19.129 Other psychoactive substance abuse with intoxication, unspecified (principal); Z82.49 Family history of ischemic heart disease and other diseases of the circulatory system

== ENCOUNTER 2018-07-03 15:43 | Emergency (ER) | payer SELFPAY ==
[2018-07-03 15:44] VITALS: BMI 20.9
[2018-07-03 15:46] VITALS: BP 139/92; PULSE 79; RESP 16; TEMP 99; O2SAT 95
--- NOTE | 2018-07-03 16:04 | ED PDOC ---
HPI: Psych/Substance Abuse Time Seen by Provider: 07/03/18 15:49 Chief Complaint (Nursing): Alcohol Ingestion Chief Complaint (Provider): Alcohol ingestion History Per: Patient History/Exam Limitations: no limitations Current Symptoms Are (Timing): Better Suicide/Self Injury Attempted (Context): None Severity: Mild Additional Complaint(s): 53 year old homeless male well known to the ED for alcohol intoxication and drug abuse is brought into the ED by EMS for disruptive behavior in public. Patient admits to drinking alcohol today. Patient denies having any complaints. Patient requesting water. PMD: None Past Medical History Reviewed: Historical Data, Nursing Documentation, Vital Signs Vital Signs: Last Vital Signs Temp 99.0 F 07/03/18 15:44 Pulse 79 07/03/18 15:44 Resp 16 07/03/18 15:44 BP 139/92 H 07/03/18 15:44 Pulse Ox 95 07/03/18 15:44 JOSH Report Viewed: Yes - Medical History PMH: Back Problems Denies: HIV, HTN, Chronic Kidney Disease, Seizures, Sexually Transmitted Disease - Surgical History Surgical History: Back Surgery (herniated disc), Hernia Repair - Family History Family History: States: CAD - Social History Alcohol: > 2 Drinks/Day - Home Medications Home Medications: Ambulatory Orders Medication Instructions Recorded Cephalexin [Keflex] 500 mg PO TID #21 capsule 02/02/17 traMADol [Ultram] 50 mg PO TID PRN #15 tab 02/02/17 Fluticasone Nasal [Flonase] 1 actuation NS BID PRN #1 bottle 04/07/17 Pseudoephedrine HCl [Sudafed 120 mg PO Q12 PRN #10 tablet.er 04/07/17 12-Hour] Clotrimazole 1% Cream [Lotrimin 1%] 1 appl TOP BID #1 tube 07/07/17 Ibuprofen [Motrin] 600 mg PO QID PRN #30 tab 09/26/17 Sulfamethoxazole/Trimethoprim 1 tab PO BID #14 tab 09/26/17 [Bactrim DS 800 mg-160 mg] Ibuprofen [Motrin Tab] 800 mg PO TID PRN #12 tab 12/05/17 Sulfamethoxazole/Trimethoprim 1 tab PO BID #14 tab 12/05/17 [Bactrim DS 800 mg-160 mg] Azithromycin [Zithromax] 250 mg PO DAILY #6 tab 01/09/18 Benzonatate 200 mg PO TID PRN #20 capsule 01/09/18 - Allergies Allergies/Adverse Reactions: Allergies Allergy/AdvReac Type Severity Reaction Status Date / Time No Known Allergies Allergy Verified 07/02/18 19:11 Review of Systems ROS Statement: Except As Marked, All Systems Reviewed And Found Negative Physical Exam - Reviewed Nursing Documentation Reviewed: Yes Vital Signs Reviewed: Yes - Physical Exam Comments: GENERAL APPEARANCE: Patient is awake, alert, oriented x 3, in no acute distress. SKIN: Warm, dry; (-) cyanosis HEAD: (-) scalp swelling, (-) scalp tenderness. EYES: (-) conjunctival pallor, (-) scleral icterus, (-) nystagmus. ENMT: Mucous membranes moist. Airway patent: (-) stridor. NECK: (-) tenderness, (-) stiffness, (-) lymphadenopathy. HEART AND CARDIOVASCULAR: (-) irregularity; (-) murmur, (-) gallop. CHEST AND RESPIRATORY: (-) rales, (-) rhonchi, (-) wheezes; breath sounds equal. ABDOMEN: Soft, (-) distention, (-) tenderness, (-) guarding. NEURO AND PSYCH: Mental status as above. Affect: calm, cooperative. Speaking in full sentences (coherently). Gait steady and unassisted. 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 Pupils equal and reactive; EOMI; (-) facial asymmetry; tongue and uvula midline. Strength and DTRs symmetric. - ECG O2 Sat by Pulse Oximetry: 95 (RA) Pulse Ox Interpretation: Normal Medical Decision Making Medical Decision Makin:49 Initial impression: 53 year old male with alcohol ingestion/substance abuse but is walking, and talking without any difficulties pt admits he was over reacting earlier, but now wants to be cooperative, he is speaking to his sister on the phone Pt is alert, awake, and oriented x3, speaking clearly, walking steady, clinically pt is stable for dc Discussed diagnosis, treatment, return precautions and f/u with pt who is understanding and in agreement, and stable for dc Scribe Attestation: Documented by Heaven Urias, acting as a scribe for Jacobo Chandra PA-C. Provider Scribe Attestation: All medical record entries made by the Scribe were at my direction and personally dictated by me. I have reviewed the chart and agree that the record accurately reflects my personal performance of the history, physical exam, medical decision making, and the department course for this patient. I have also personally directed, reviewed, and agree with the discharge instructions and disposition. Disposition - Clinical Impression Clinical Impression: Substance abuse - Patient ED Disposition Is Patient to be Admitted: No Counseled Patient/Family Regarding: Studies Performed, Diagnosis, Need For Followup - Disposition Referrals: your, doctor [Other] Disposition: Routine/Home Disposition Time: 16:07 Condition: STABLE Additional Instructions: Thank you for letting us take care of you today. The emergency medical care you received today was directed at your acute symptoms. If you were prescribed any medication, please fill it and take as directed. It may take several days for your symptoms to resolve. Return to the Emergency Department if your symptoms worsen, do not improve, or if you have any other problems. Please contact your doctor in 2 days for re-evaluation and follow up / or call one of the physicians/clinics you have been referred to that are listed on the Patient Visit Information form that is included in your discharge packet. Bring any paperwork you were given at discharge with you along with any medications you are taking to your follow up visit. Our treatment cannot replace ongoing medical care by a primary care provider (PCP) outside of the emergency depart ment. Forms: [facility] (Lithuanian) Print Language: NORWEGIAN - POA Present On Arrival: None
== END 2018-07-03 16:07 | disposition home or self-care (01) ==
LOC: H.ER 15:43
DX: F10.129 Alcohol abuse with intoxication, unspecified (principal); Z59.0 Homelessness